=== PATIENT | male | born 1950 | race Caucasian/White ===

== ENCOUNTER 2020-05-21 17:57 | Inpatient (IN) | payer OTHER, MEDICARE ==
[~2020-05-21 17:57] MED LIST: Dexamethasone 20 MG/5 ML VIAL ONE; Glycopyrrolate 0.2 MG/ML 5 ML SYRINGE ONE; Lidocaine 1% PF 5 ML VIAL ONE; Ondansetron PF 4 MG/2 ML Vial ONE; PHENYLEPHRINE-NS 100 MCG/ML 10 ML SYRINGE ONE; PROPOFOL 200 MG/20 ML VIAL ONE; Rocuronium Bromide 10 MG/ML (10ML VIAL) ONE; Succinylcholine 200 MG/10 ml SYRINGE FS ONE
[2020-05-21] MEDS ORDERED: Morphine 4 MG/ML VIAL ONE ×2 (18:09→19:03)
[2020-05-21 18:26] LABS: #Eosinphils 0.2 thou/uL (0.0-0.7); #Neutrophils 12.5 thou/uL (1.40-6.50); %Basophils 0.3 % (0.0-1.0); %Eosinophils 0.9 % (0.0-10.0); %Lymphocytes 22.5 % (21.0-51.0); %Monocytes 5.5 % (0.0-10.0); %Neutrophils 70.8 % (42.0-75.0); Mean Corpuscular HGB CONC 34.1 g/dL (32.0-36.0); Mean Corpuscular Hemoglobin 34.1 pg (27.0-31.0); Mean Corpuscular Volume 99.8 fL (78.0-98.0); Mean Platelet Volume 8.3 fL (7.4-10.4); Platelet Count 208 thou/uL (130-400); Red Blood Cell (RBC) Count 4.41 mill/uL (4.70-6.10); White Blood Cell (WBC) Count 17.7 thou/uL (4.8-10.8)
[2020-05-21 18:34] LABS: INR-International Normal Ratio 1.4; PTT 37.6 sec (22.9-36.1); Prothrombin Time 17.6 sec (12.0-14.7)
[2020-05-21] MEDS ORDERED: Boostrix 0.5 ML (Tdap) VIAL ONE (18:46)
[2020-05-21 18:49] LABS: ALT (SGPT) 58 U/L (8-55); AST (SGOT) 65 U/L (5-34); Albumin 3.6 g/dL (3.4-4.8); Alcohol Less than 10 mg/dL (Less than 10); Alkaline Phosphatase 63 U/L (40-110); Anion Gap 17 mmol/L (10-20); BUN (Urea Nitrogen) 18 mg/dL (8.4-25.7); Bilirubin, Total 0.4 mg/dL (0.2-1.2); Calc. Creatinine Clearance 0 mL/min (70-130); Calcium 7.9 mg/dL (7.8-10.44); Carbon Dioxide 22 mmol/L (23-31); Chloride 105 mmol/L (98-107); Globulin 2.7 g/dL (2.4-3.5); Glucose 166 mg/dL (80-115); Lipase 73 U/L (8-78); Potassium 3.6 mmol/L (3.5-5.1); Protein, Total 6.3 g/dL (5.8-8.1); Sodium 140 mmol/L (136-145)
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
[2020-05-21] MEDS ORDERED: Diltiazem 125 MG/25 ML ONE (19:15)
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
--- NOTE | 2020-05-21 19:43 | RAD ---
EXAM: 2 views of the right femur HISTORY: Right hip pain COMPARISON: CT abdomen/pelvis 05/21/2020 FINDINGS: There is a fracture of the right posterior acetabulum and dislocation of the right hip. No fracture of the inferior pubic ramus is appreciated. Moderate soft tissue swelling is seen. No degenerative changes are seen in the hip. IMPRESSION: Right acetabular fracture with hip dislocation.
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
[2020-05-21] MEDS ORDERED: Fentanyl 100 MCG/2 ML VIAL ONE ×5 (20:10→22:49)
[2020-05-21] MEDS ORDERED: Ketorolac Tromethamine 30 MG/ML VIAL ONE (20:10)
[2020-05-21 20:12] LABS: Magnesium 1.4 mg/dL (1.6-2.6); Phosphorus 2.1 mg/dL (2.3-4.7)
[2020-05-21] MEDS ORDERED: Digoxin 0.5 MG/2 ML AMP ONE (20:32)
[2020-05-21 20:36] LABS: Bilirubin Negative (Negative); Blood, Urine Negative (Negative); Clarity Clear (Clear); Glucose, Urine (Dipstick) Normal (Negative); Ketone, Urine Negative (Negative); Leukocyte Negative Leu/uL (Negative); Nitrite Negative (Negative); Protein, Urine (Dipstick) Negative (Neg-Trace); Specific Gravity, Urine 1.018 (1.002-1.036); Urobilinogen Normal mg/dL (Less than 2); pH, Urine 5.5 (5.0-9.0)
[2020-05-21] MEDS ORDERED: Neomycin-Polymyxin 1 ML AMP ONE (20:38)
[2020-05-21] MEDS ORDERED: Midazolam HCl 2 mg/2 ml Vial ONE (21:03)
[2020-05-21] MEDS ORDERED: hydrALAZINE 20 MG/ML VIAL SLOW IVP PRN (21:20)
[2020-05-21] MEDS ORDERED: Dextrose 5% in Water 1,000 ML IV PRN (21:20)
[2020-05-21] MEDS ORDERED: Dextrose 50% Abboject 50 ML SYRINGE SLOW IVP PRN (21:20)
[2020-05-21] MEDS ORDERED: Morphine 2 MG/ML VIAL SLOW IVP PRN (21:20)
[2020-05-21] MEDS ORDERED: Morphine 4 MG/ML VIAL SLOW IVP PRN (21:20)
[2020-05-21 21:22] LABS: SARS-CoV-2 NAA Rapid Test Not Detected (NotDetected)
[2020-05-21] MEDS ORDERED: traMADol HCl 50 MG TAB PO PRN (21:26)
[2020-05-21] MEDS ORDERED: Cyclobenzaprine 10 MG TAB PO PRN (21:26)
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
[2020-05-21 21:34] LABS: Lactic Acid 4.2 mmol/L (0.5-2.2)
[2020-05-21] MEDS ORDERED: Norepinephrine 4 MG/4 ML VIAL ONE (21:41)
[2020-05-21] MEDS ORDERED: Phenylephrine 10 MG/ML VIAL ONE (21:46)
[2020-05-21 21:56] LABS: CKMB 5.6 ng/mL (0-6.6)
[2020-05-21] MEDS ORDERED: HYDROmorphone 2 MG/ML VIAL SLOW IVP PRN (21:58)
[2020-05-21] MEDS ORDERED: Promethazine HCl 25 MG/ML VIAL SLOW IVP PRN (21:58)
[2020-05-21] MEDS ORDERED: Meperidine HCl/PF 25 MG/ML VIAL SLOW IVP PRN (21:58)
[2020-05-21] MEDS ORDERED: Ondansetron HCl/PF 4 MG/2 ML Vial IVP PRN (21:58)
--- NOTE | 2020-05-21 23:04 | RAD ---
EXAM: 3 views of the right ankle HISTORY: Ankle fracture COMPARISON: 05/21/2020 at 7:03 PM FINDINGS/IMPRESSION: 3 limited intraoperative fluoroscopic views of the right ankle shows the patient is status post reduction of the tibiotalar dislocation. Screws are seen in the talus and medial malleolus as well as a syndesmotic screw. Air in the soft tissues is from recent surgery.
[2020-05-22 00:06] LABS: Lactic Acid 3.9 mmol/L (0.5-2.2)
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
[2020-05-22] MEDS ORDERED: Diltiazem 125 MG in Sodium Chloride 0.9% 100 ML IVPB SCH ×2 (00:30→14:00)
[2020-05-22] MEDS: Sodium Chloride 0.9% 1,000 ML IV SCH ×5 (01:21→21:35)
[2020-05-22] MEDS: traMADol HCl 50 MG TAB PO SCH ×2 (01:22→06:21)
[2020-05-22] MEDS: Acetaminophen 500 MG TAB PO SCH ×5 (01:22→23:36)
[2020-05-22] MEDS ORDERED: Ketorolac Tromethamine 30 MG/ML VIAL IVP SCH ×2 (03:00→12:00)
[2020-05-22] MEDS: CEFAZOLIN 2 GM in Premix Bag 1 BAG IVPB SCH ×2 (03:24→12:01)
[2020-05-22 04:18] LABS: #Lymphocytes 0.7 thou/uL (1.20-3.40); #Monocytes 0.8 thou/uL (0.11-0.59); #Neutrophils 10.9 thou/uL (1.40-6.50); %Basophils 0.1 % (0.0-1.0); %Eosinophils 0.2 % (0.0-10.0); %Lymphocytes 5.3 % (21.0-51.0); %Monocytes 6.2 % (0.0-10.0); %Neutrophils 88.2 % (42.0-75.0); Hemoglobin 12.3 g/dL (14.0-18.0); Mean Corpuscular HGB CONC 34.8 g/dL (32.0-36.0); Mean Corpuscular Hemoglobin 34.5 pg (27.0-31.0); Mean Corpuscular Volume 99.3 fL (78.0-98.0); Mean Platelet Volume 8.6 fL (7.4-10.4); Platelet Count 162 thou/uL (130-400); RBC Distribution Width 12.1 % (11.5-14.5); Red Blood Cell (RBC) Count 3.55 mill/uL (4.70-6.10); White Blood Cell (WBC) Count 12.3 thou/uL (4.8-10.8)
[2020-05-22 04:49] LABS: INR-International Normal Ratio 1.5; PTT 34.4 sec (22.9-36.1); Prothrombin Time 18.4 sec (12.0-14.7)
[2020-05-22 05:04] LABS: Lactic Acid 4.4 mmol/L (0.5-2.2)
[2020-05-22 05:11] LABS: CKMB 15.3 ng/mL (0-6.6)
[2020-05-22 05:14] LABS: Anion Gap 16 mmol/L (10-20); BUN (Urea Nitrogen) 21 mg/dL (8.4-25.7); Calc. Creatinine Clearance 121 mL/min (70-130); Calcium 7.6 mg/dL (7.8-10.44); Carbon Dioxide 21 mmol/L (23-31); Chloride 109 mmol/L (98-107); Glucose 184 mg/dL (80-115); Phosphorus 3.3 mg/dL (2.3-4.7); Potassium 4.5 mmol/L (3.5-5.1); Sodium 141 mmol/L (136-145)
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
[2020-05-22] MEDS ORDERED: Morphine 4 MG/ML VIAL SLOW IVP PRN (07:16)
[2020-05-22] MEDS ORDERED: Levothyroxine 175 MCG TAB PO SCH (07:30)
[2020-05-22] MEDS ORDERED: Lactated Ringer's 1,000 ML IV SCH (07:30)
[2020-05-22] MEDS ORDERED: Sodium Phosphate 15 MMOL in Sodium Chloride 0.9% 250 ML 250 ML IVPB SCH (07:30)
[2020-05-22] MEDS ORDERED: traMADol HCl 50 MG TAB PO SCH (08:00)
[2020-05-22] MEDS: Gabapentin 300 MG CAP PO SCH ×3 (08:29→20:13)
[2020-05-22] MEDS: Senokot S 8.6-50 MG TAB PO SCH ×2 (08:29→20:15)
[2020-05-22] MEDS: Polyethylene Glycol 3350 17 GM Packet PO SCH (08:30)
[2020-05-22] MEDS ORDERED: Famotidine/PF 20 mg/2ml Vial SLOW IVP SCH (09:00)
[2020-05-22] MEDS ORDERED: Senokot S 8.6-50 MG TAB PO SCH (09:00)
[2020-05-22] MEDS ORDERED: HYDROmorphone 10 mg/100 ml CADD IVPB PRN (09:15)
[2020-05-22] MEDS ORDERED: Metoprolol Tartrate 5 MG/5 ML VIAL IVP SCH (13:00)
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
[2020-05-22] MEDS ORDERED: Digoxin 0.5 MG/2 ML AMP SLOW IVP SCH (14:45)
[2020-05-22 14:56] LABS: #Lymphocytes 1.4 thou/uL (1.20-3.40); #Monocytes 1.5 thou/uL (0.11-0.59); #Neutrophils 13.1 thou/uL (1.40-6.50); %Eosinophils 0.1 % (0.0-10.0); %Lymphocytes 8.5 % (21.0-51.0); %Monocytes 9.3 % (0.0-10.0); %Neutrophils 82.1 % (42.0-75.0); Hemoglobin 11.2 g/dL (14.0-18.0); Mean Corpuscular HGB CONC 34.7 g/dL (32.0-36.0); Mean Corpuscular Hemoglobin 35.2 pg (27.0-31.0); Mean Platelet Volume 8.5 fL (7.4-10.4); Platelet Count 169 thou/uL (130-400); RBC Distribution Width 12.1 % (11.5-14.5); Red Blood Cell (RBC) Count 3.18 mill/uL (4.70-6.10)
[2020-05-22 15:06] LABS: Lactic Acid 2.1 mmol/L (0.5-2.2)
[2020-05-22 15:14] LABS: Troponin I 0.055 ng/mL (< 0.028)
[2020-05-22] MEDS: Amiodarone 450 MG in Dextrose 5% in Water 250 ML IVPB SCH (16:49)
[2020-05-22 16:52] LABS: Calcium 7.2 mg/dL (7.8-10.44); Chloride 107 mmol/L (98-107); Potassium 5.8 mmol/L (3.5-5.1); Sodium 139 mmol/L (136-145)
[2020-05-22 16:53] LABS: Glucose 157 mg/dL (80-115)
[2020-05-22 16:54] LABS: Anion Gap 17 mmol/L (10-20); Carbon Dioxide 21 mmol/L (23-31)
[2020-05-22 16:57] LABS: BUN (Urea Nitrogen) 26 mg/dL (8.4-25.7)
[2020-05-22 16:58] LABS: Magnesium 1.9 mg/dL (1.6-2.6)
[2020-05-22 17:05] LABS: Calc. Creatinine Clearance 77 mL/min (70-130); Phosphorus 7.2 mg/dL (2.3-4.7)
[2020-05-22] MEDS ORDERED: Sodium Chloride 0.9% 1,000 ML IV SCH (17:45)
[2020-05-22] MEDS ORDERED: Hydrocortisone Sod Succ/PF 100 mg/2 ml Vial IVP SCH (22:15)
[2020-05-23] MEDS: Amiodarone 450 MG in Dextrose 5% in Water 250 ML IVPB SCH (02:17)
[2020-05-23] MEDS: Sodium Chloride 0.9% 1,000 ML IV SCH ×2 (02:17→08:32)
[2020-05-23] MEDS ORDERED: Hydrocortisone Sod Succ/PF 100 mg/2 ml Vial IVP SCH (06:00)
[2020-05-23] MEDS: Acetaminophen 500 MG TAB PO SCH ×4 (06:16→23:19)
[2020-05-23] MEDS: Levothyroxine 175 MCG TAB PO SCH (06:17)
[2020-05-23] MEDS ORDERED: Fentanyl 100 MCG/2 ML VIAL ONE ×2 (07:06→09:27)
[2020-05-23] MEDS ORDERED: Famotidine/PF 20 mg/2ml Vial ONE (07:57)
[2020-05-23] MEDS ORDERED: Ondansetron ODT 4 MG TAB ONE (08:06)
[2020-05-23] MEDS: Gabapentin 300 MG CAP PO SCH ×3 (08:33→20:40)
[2020-05-23] MEDS ORDERED: PHENYLEPHRINE-NS 100 MCG/ML 10 ML SYRINGE ONE (09:01)
[2020-05-23] MEDS ORDERED: PROPOFOL 200 MG/20 ML VIAL ONE (09:01)
[2020-05-23] MEDS ORDERED: Rocuronium Bromide 10 MG/ML (10ML VIAL) ONE (09:01)
[2020-05-23] MEDS ORDERED: Glycopyrrolate 0.2 MG/ML 5 ML SYRINGE ONE (09:01)
[2020-05-23] MEDS ORDERED: Ondansetron PF 4 MG/2 ML Vial ONE (09:01)
[2020-05-23] MEDS ORDERED: Succinylcholine 200 MG/10 ml SYRINGE FS ONE (09:01)
[2020-05-23] MEDS ORDERED: Lidocaine 1% PF 5 ML VIAL ONE (09:01)
[2020-05-23] MEDS ORDERED: Dexamethasone 20 MG/5 ML VIAL ONE (09:01)
[2020-05-23] MEDS: Senokot S 8.6-50 MG TAB PO SCH ×2 (10:15→20:40)
[2020-05-23] MEDS ORDERED: Sodium Bicarbonate 150 MEQ in Dextrose 5% in Water 1,000 ML IV SCH (11:45)
[2020-05-23] MEDS ORDERED: SUGAMMADEX SODIUM 200 MG/2 ML VIAL ONE (12:08)
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
[2020-05-23] MEDS ORDERED: Promethazine HCl 25 MG/ML VIAL IM PRN (12:26)
[2020-05-23] MEDS ORDERED: Ondansetron HCl/PF 4 MG/2 ML Vial IVP PRN (12:26)
[2020-05-23] MEDS ORDERED: Promethazine HCl 25 MG/ML VIAL SLOW IVP PRN (12:26)
[2020-05-23] MEDS ORDERED: HYDROmorphone 10 mg/100 ml CADD IVPB PRN (14:21)
[2020-05-23] MEDS: Hydrocortisone Sod Succ/PF 100 mg/2 ml Vial IVP SCH ×3 (14:34→23:19)
[2020-05-23 14:40] LABS: #Lymphocytes 0.5 thou/uL (1.20-3.40); #Monocytes 0.7 thou/uL (0.11-0.59); #Neutrophils 8.7 thou/uL (1.40-6.50); %Basophils 0.4 % (0.0-1.0); %Eosinophils 0.1 % (0.0-10.0); %Lymphocytes 4.8 % (21.0-51.0); %Monocytes 6.7 % (0.0-10.0); %Neutrophils 87.9 % (42.0-75.0); Mean Corpuscular HGB CONC 35.5 g/dL (32.0-36.0); Mean Corpuscular Hemoglobin 36.4 pg (27.0-31.0); Mean Platelet Volume 8.9 fL (7.4-10.4); Platelet Count 111 thou/uL (130-400); RBC Distribution Width 12.3 % (11.5-14.5); Red Blood Cell (RBC) Count 2.19 mill/uL (4.70-6.10); White Blood Cell (WBC) Count 9.9 thou/uL (4.8-10.8)
[2020-05-23] MEDS: Polyethylene Glycol 3350 17 GM Packet PO SCH (14:44)
[2020-05-23 14:58] LABS: Anion Gap 13 mmol/L (10-20); BUN (Urea Nitrogen) 33 mg/dL (8.4-25.7); CK (CPK) 3340 U/L (30-200); Calc. Creatinine Clearance 75 mL/min (70-130); Calcium 6.3 mg/dL (7.8-10.44); Carbon Dioxide 20 mmol/L (23-31); Chloride 106 mmol/L (98-107); Glucose 148 mg/dL (80-115); Magnesium 1.6 mg/dL (1.6-2.6); Phosphorus 4.8 mg/dL (2.3-4.7); Potassium 5.4 mmol/L (3.5-5.1); Sodium 134 mmol/L (136-145)
[2020-05-23] MEDS ORDERED: Magnesium 2 GM/50 ML 2 GM in Premix Bag 1 BAG IVPB SCH (15:30)
[2020-05-23] MEDS: CEFAZOLIN 2 GM in Premix Bag 1 BAG IVPB SCH ×2 (16:22→23:18)
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
[2020-05-23] MEDS: Calcium Carbonate 500 MG ChewTAB PO PRN ×2 (18:23→23:19)
[2020-05-23] MEDS ORDERED: Calcium Gluconate 4.6 MEQ in Sodium Chloride 0.9% 100 ML IVPB SCH (20:45)
[2020-05-24 05:43] LABS: #Lymphocytes 0.9 thou/uL (1.20-3.40); #Monocytes 0.9 thou/uL (0.11-0.59); #Neutrophils 7.4 thou/uL (1.40-6.50); %Basophils 0.1 % (0.0-1.0); %Eosinophils 0.1 % (0.0-10.0); %Lymphocytes 9.8 % (21.0-51.0); %Monocytes 9.3 % (0.0-10.0); %Neutrophils 80.6 % (42.0-75.0); Mean Corpuscular HGB CONC 34.4 g/dL (32.0-36.0); Mean Corpuscular Hemoglobin 34.7 pg (27.0-31.0); Mean Platelet Volume 8.8 fL (7.4-10.4); Platelet Count 114 thou/uL (130-400); RBC Distribution Width 12.2 % (11.5-14.5); Red Blood Cell (RBC) Count 2.02 mill/uL (4.70-6.10); White Blood Cell (WBC) Count 9.2 thou/uL (4.8-10.8)
[2020-05-24 06:11] LABS: Anion Gap 14 mmol/L (10-20); BUN (Urea Nitrogen) 35 mg/dL (8.4-25.7); Calc. Creatinine Clearance 89 mL/min (70-130); Calcium 6.5 mg/dL (7.8-10.44); Carbon Dioxide 22 mmol/L (23-31); Chloride 103 mmol/L (98-107); Glucose 135 mg/dL (80-115); Phosphorus 3.7 mg/dL (2.3-4.7); Potassium 4.9 mmol/L (3.5-5.1); Sodium 134 mmol/L (136-145)
[2020-05-24 06:12] LABS: CK (CPK) 6300 U/L (30-200)
[2020-05-24] MEDS: Hydrocortisone Sod Succ/PF 100 mg/2 ml Vial IVP SCH ×4 (06:15→23:53)
[2020-05-24] MEDS: Acetaminophen 500 MG TAB PO SCH ×4 (06:15→23:50)
[2020-05-24] MEDS: Levothyroxine 175 MCG TAB PO SCH (06:15)
--- NOTE | 2020-05-24 07:39 | RAD ---
Intraoperative imaging of the right hip: 05/23/2020 HISTORY: Fracture dislocation status post ORIF FINDINGS: 4 intraoperative images are provided. Images demonstrate extensive postoperative hardware a ssociated with the right acetabulum. The fracture of the acetabulum demonstrates a more anatomic alignment on this exam and the previously noted dislocation of the right hip appears to have been reduced. IMPRESSION: ORIF as above.
[2020-05-24] MEDS ORDERED: Calcium Chloride 13.6 MEQ in Sodium Chloride 0.9% 100 ML IVPB SCH (08:45)
[2020-05-24] MEDS ORDERED: Sodium Phosphate 15 MMOL in Sodium Chloride 0.9% 250 ML 250 ML IVPB SCH (09:00)
[2020-05-24] MEDS: Sodium Bicarbonate 150 MEQ in Dextrose 5% in Water 1,000 ML IV SCH (09:05)
[2020-05-24] MEDS: Senokot S 8.6-50 MG TAB PO SCH ×2 (09:06→20:57)
[2020-05-24] MEDS: Gabapentin 300 MG CAP PO SCH ×3 (09:07→20:57)
[2020-05-24] MEDS: Polyethylene Glycol 3350 17 GM Packet PO SCH (09:07)
[2020-05-24] MEDS: traMADol HCl 50 MG TAB PO SCH ×3 (10:43→20:56)
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
[2020-05-24] MEDS ORDERED: HYDROmorphone 10 mg/100 ml CADD IVPB PRN (11:17)
[2020-05-24] MEDS: Calcium Carbonate 500 MG ChewTAB PO PRN ×2 (15:20→20:59)
[2020-05-25] MEDS: Sodium Bicarbonate 150 MEQ in Dextrose 5% in Water 1,000 ML IV SCH (02:29)
[2020-05-25 05:27] LABS: #Basophils 0.1 thou/uL (0.0-0.2); #Lymphocytes 0.8 thou/uL (1.20-3.40); #Monocytes 0.8 thou/uL (0.11-0.59); #Neutrophils 6.3 thou/uL (1.40-6.50); %Basophils 1.3 % (0.0-1.0); %Eosinophils 0.1 % (0.0-10.0); %Lymphocytes 9.4 % (21.0-51.0); %Monocytes 9.9 % (0.0-10.0); %Neutrophils 79.3 % (42.0-75.0); Mean Corpuscular HGB CONC 34.7 g/dL (32.0-36.0); Mean Corpuscular Hemoglobin 34.4 pg (27.0-31.0); Mean Platelet Volume 8.8 fL (7.4-10.4); Platelet Count 109 thou/uL (130-400); RBC Distribution Width 13.9 % (11.5-14.5); Red Blood Cell (RBC) Count 2.03 mill/uL (4.70-6.10); White Blood Cell (WBC) Count 7.9 thou/uL (4.8-10.8)
[2020-05-25] MEDS: Acetaminophen 500 MG TAB PO SCH ×4 (05:28→23:19)
[2020-05-25] MEDS: Levothyroxine 175 MCG TAB PO SCH (05:28)
[2020-05-25] MEDS: Hydrocortisone Sod Succ/PF 100 mg/2 ml Vial IVP SCH ×4 (05:29→23:20)
[2020-05-25] MEDS: traMADol HCl 50 MG TAB PO SCH ×4 (05:31→21:03)
[2020-05-25 05:43] LABS: Anion Gap 9 mmol/L (10-20); BUN (Urea Nitrogen) 25 mg/dL (8.4-25.7); CK (CPK) 3470 U/L (30-200); Calc. Creatinine Clearance 159 mL/min (70-130); Calcium 7.4 mg/dL (7.8-10.44); Carbon Dioxide 28 mmol/L (23-31); Chloride 100 mmol/L (98-107); Glucose 139 mg/dL (80-115); Magnesium 1.8 mg/dL (1.6-2.6); Potassium 4.4 mmol/L (3.5-5.1); Sodium 133 mmol/L (136-145)
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
[2020-05-25] MEDS: Ascorbic Acid 500 mg Chewable Tablet PO SCH ×2 (09:05→21:06)
[2020-05-25] MEDS: Ferrous Sulfate 325 MG TAB PO SCH ×2 (09:05→21:05)
[2020-05-25] MEDS: Gabapentin 300 MG CAP PO SCH ×3 (09:05→21:05)
[2020-05-25] MEDS: Senokot S 8.6-50 MG TAB PO SCH ×2 (09:06→21:04)
[2020-05-25] MEDS: Polyethylene Glycol 3350 17 GM Packet PO SCH (09:07)
[2020-05-25] MEDS: Calcium Carbonate 500 MG ChewTAB PO PRN (21:04)
[2020-05-26] MEDS: Calcium Carbonate 500 MG ChewTAB PO PRN (04:42)
[2020-05-26] MEDS: traMADol HCl 50 MG TAB PO SCH ×3 (04:42→17:02)
[2020-05-26] MEDS: Hydrocortisone Sod Succ/PF 100 mg/2 ml Vial IVP SCH (06:18)
[2020-05-26] MEDS: Levothyroxine 175 MCG TAB PO SCH (06:18)
[2020-05-26] MEDS: Acetaminophen 500 MG TAB PO SCH ×4 (06:18→23:22)
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
[2020-05-26] MEDS ORDERED: Dicyclomine 10 MG CAP PO SCH (07:30)
--- NOTE | 2020-05-26 07:54 | PRG ---
DATE OF SERVICE: 05/25/2020 SUBJECTIVE: Turner is a 69-year-old male, postop day 3 from open reduction and internal fixation of a right posterior hip dislocation and a left displaced fracture dislocation of the talus requiring osteotomy. He is doing relatively well. He is in better spirits today. His pain is controlled. OBJECTIVE: VITAL SIGNS: Stable, afebrile, heart rate between 90 and 100, temperature 97.5, respiratory rate 14. GENERAL: He is alert, oriented to person, place, time, situation, responsive, appropriate with examiner. EXTREMITIES: Leg lengths are normal. No malrotation or shortening. He has good digital excursion and capillary refill is brisk in both lower extremities. IMPRESSION: 1. This is a 69-year-old male, postop day 3, right acetabular open reduction and internal fixation. 2. Right ankle postop day 5, open reduction and internal fixation for fracture, dislocation of the talus requiring osteotomy. PLAN: Continue current care. DISPOSITION: Per Trauma Team. Job ID: [id number]
[2020-05-26] MEDS: Ferrous Sulfate 325 MG TAB PO SCH ×2 (08:14→22:13)
[2020-05-26] MEDS: Gabapentin 300 MG CAP PO SCH ×3 (08:14→22:13)
[2020-05-26] MEDS: Ascorbic Acid 500 mg Chewable Tablet PO SCH ×2 (08:14→22:13)
[2020-05-26] MEDS: Polyethylene Glycol 3350 17 GM Packet PO SCH (08:14)
[2020-05-26] MEDS ORDERED: Fleet Enema 133 ML BOT PR SCH (08:15)
[2020-05-26] MEDS: Senokot S 8.6-50 MG TAB PO SCH ×2 (08:15→22:13)
[2020-05-26] MEDS ORDERED: Apixaban 5 MG TAB PO SCH (09:00)
[2020-05-26] MEDS ORDERED: PHENYLEPHRINE-NS 100 MCG/ML 10 ML SYRINGE ONE (09:01)
[2020-05-26] MEDS ORDERED: ePHEDrine 50 MG/ML VIAL ONE (09:01)
[2020-05-26] MEDS ORDERED: PROPOFOL 200 MG/20 ML VIAL ONE (09:01)
[2020-05-26] MEDS ORDERED: Succinylcholine 200 MG/10 ml SYRINGE FS ONE (09:01)
[2020-05-26] MEDS ORDERED: Lidocaine 1% PF 5 ML VIAL ONE (09:01)
[2020-05-26] MEDS ORDERED: Rocuronium Bromide 10 MG/ML (10ML VIAL) ONE (09:01)
[2020-05-26 10:13] LABS: Hemoglobin 9.5 g/dL (14.0-18.0); Mean Corpuscular HGB CONC 33.2 g/dL (32.0-36.0); Mean Corpuscular Hemoglobin 32.6 pg (27.0-31.0); Platelet Count 165 thou/uL (130-400); RBC Distribution Width 15.1 % (11.5-14.5); Red Blood Cell (RBC) Count 2.92 mill/uL (4.70-6.10); White Blood Cell (WBC) Count 11.7 thou/uL (4.8-10.8)
[2020-05-26 10:41] LABS: Band 12 % (5-11); Lymphocytes 17 % (21-51); MDiff Complete? YES; Monocytes 10 % (0-10); Neutrophil 59 % (42-75); Nucleated RBC 1 % (0); Platelet Morphology Comment Appears Adequate; Polychromasia SLIGHT = 2-3 cells (100X) (0-2/hpf); Reactive Lymphocytes 2 % (0-10)
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
[2020-05-26] MEDS ORDERED: Iopamidol-370 76% 500 ML 1 ML ONE (11:45)
[2020-05-26] MEDS ORDERED: NEOSTIGMINE SC SCH (14:00)
--- NOTE | 2020-05-26 14:19 | RAD ---
Exam: One view chest 2 views abdomen HISTORY: Evaluate for ileus FINDINGS: 1 view chest: Normal cardiac silhouette. Diminished lung volumes No masses or consolidation or pneumothorax 2 views abdomen: Portable supine and left lateral decubitus views demonstrate pneumoperitoneum. Marke dly distended loops of colon are identified. Air-filled small bowel loops are also noted. IMPRESSION: 1. Pneumoperitoneum. 2. Distended small bowel and loops of colon suggesting ileus line results study discussed with Dr. Nj rodriguez 05/26/2019 at 2:16 PM Code CR
[2020-05-26] MEDS: Piperacillin/Tazobactam 4.5 GM in Sodium Chloride 0.9% 100 ML IVPB SCH ×3 (15:22→23:23)
[2020-05-26 15:26] LABS: INR-International Normal Ratio 1.5; PTT 37.4 sec (22.9-36.1)
--- NOTE | 2020-05-26 15:41 | CT ---
CT OF THE ABDOMEN AND PELVIS WITH IV CONTRAST INDICATION: 69-year-old male with history of abdominal pain with inability to have a bowel movement s danni last Chai. COMPARISON: CT the pelvis without contrast dated May 22, [address] the chest, abdomen and pel vis dated May 21, 2020. FINDINGS: ABDOMEN: Lung bases: There are small bilateral pleural effusions and bibasilar atelectasis Liver: No focal lesion. Gallbladder: Surgically absent Pancreas: Normal. Adrenal glands: Normal. Spleen: There are numerous calcified granuloma within the spleen Kidneys and ureters: There is a 5 cm cyst involving the inferior pole of the right kidney. There is a 1.6 cm cyst involving the posterior aspect of the left mid kidney. Additional subcentimeter cyst seen within the superior pole of the left kidney. Vasculature: There are mild vascular calcifications seen involving the visualized vasculature. Lymph nodes:No lymphadenopathy. Free fluid in abdomen:There is mild scattered free air and free fluid within the abdomen. There is di ffuse enlargement of the small and large bowel suspicious for ileus. There is suspicion for transmural extension of gas at the level of the proximal sigmoid colon on image 81 of series 2. There are numerous scattered colonic diverticula. PELVIS: Small and large bowel: Suspected proximal sigmoid colonic perforation with [id number] free air and free fluid is above. There is suspicion for diffuse ileus. Appendix:Not definitely seen Bladder: Decompressed with a Andrea catheter Rectal and perirectal soft tissues:There is fluid distention of the rectum Reproductive structures: Normal. Free fluid in pelvis: There is a mild free fluid in pelvis. Lymphadenopathy pelvis: No lymphadenopathy is evident. Osseous structures: There is postsurgical change consistent with a posterior wall repair of the right acetabulum. There are bilateral pars defects at L5 with grade 1 anterolisthesis. There is scattered degenerative and osteoarthritic changes. Soft tissues:There is mild anasarca IMPRESSION: 1. Findings are most suspicious for perforated viscus. There is suspicion for transmural extension of gas near the region of the proximal sigmoid colon, possibly related to a perforated diverticulitis. Findings were called to Dr. Currie at 3:30 PM on May 26, 2019. 2. Diffuse small and large bowel ileus. 3. [id number] free fluid or free air within the abdomen and pelvis. 4. Small bilateral pleural effusions and bibasilar atelectasis and mild anasarca. 5. Bilateral renal cysts. 6. Interval operative repair of the right hip posterior wall last however fracture.
[2020-05-26 15:53] LABS: Anisocytosis MODERATE=16-30 cells (100X) (0-5/hpf); Band 17 % (5-11); Hemoglobin 8.9 g/dL (14.0-18.0); Hypochromia SLIGHT = 6-15 cells (100X) (0-5/hpf); Lymphocytes 9 % (21-51); MDiff Complete? YES; Mean Corpuscular HGB CONC 34.1 g/dL (32.0-36.0); Mean Corpuscular Hemoglobin 33.2 pg (27.0-31.0); Mean Corpuscular Volume 97.4 fL (78.0-98.0); Mean Platelet Volume 7.8 fL (7.4-10.4); Monocytes 7 % (0-10); Neutrophil 66 % (42-75); Nucleated RBC 2 % (0); Platelet Count 195 thou/uL (130-400); Platelet Morphology Comment Appears Adequate; Polychromasia MODERATE = 3-4 cells (100X) (0-2/hpf); RBC Distribution Width 14.8 % (11.5-14.5); Reactive Lymphocytes 1 % (0-10); Red Blood Cell (RBC) Count 2.69 mill/uL (4.70-6.10); White Blood Cell (WBC) Count 11.8 thou/uL (4.8-10.8)
[2020-05-26 15:54] LABS: Anion Gap 14 mmol/L (10-20); BUN (Urea Nitrogen) 21 mg/dL (8.4-25.7); Calc. Creatinine Clearance 185 mL/min (70-130); Calcium 8.1 mg/dL (7.8-10.44); Carbon Dioxide 29 mmol/L (23-31); Chloride 98 mmol/L (98-107); Glucose 102 mg/dL (80-115); Magnesium 1.6 mg/dL (1.6-2.6); Phosphorus 3.2 mg/dL (2.3-4.7); Potassium 4.3 mmol/L (3.5-5.1); Sodium 137 mmol/L (136-145)
[2020-05-26] MEDS ORDERED: Fentanyl 100 MCG/2 ML VIAL ONE (16:33)
[2020-05-26] MEDS ORDERED: Sodium Chloride 0.9% 30 ML ONE (18:00)
[2020-05-26] MEDS ORDERED: Propofol 1,000 MG/100 ML VIAL IV ONE (19:28)
[2020-05-26] MEDS ORDERED: Ventilator Sedation Protocol 1 EACH FS ONE (19:34)
[2020-05-26] MEDS ORDERED: Fentanyl CADD 100 ML ONE (19:36)
[2020-05-26] MEDS: Fentanyl CADD 100 ML IV SCH (19:40)
[2020-05-26] MEDS ORDERED: Propofol BOLUS 1,000 MG/100 ML VIAL IV PRN (19:45)
[2020-05-26] MEDS ORDERED: Fentanyl BOLUS 250 ML IVPB PRN (19:45)
[2020-05-26] MEDS ORDERED: Morphine 2 MG/ML VIAL SLOW IVP PRN (19:45)
[2020-05-26] MEDS ORDERED: Propofol 1,000 MG/100 ML VIAL IV PRN (19:45)
[2020-05-26] MEDS ORDERED: DISCONTINUE PREVIOUS NARCOTIC PAIN MEDICATIONS AND BENZODIAZEPINES FS SCH (19:45)
[2020-05-26] MEDS ORDERED: Lorazepam 2 MG/ML VIAL SLOW IVP PRN (19:45)
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
[2020-05-26 19:50] LABS: Actual Bicarbonate (HCO3a) 30.8 mEq/L (22-28); Base Excess (BEa) 4.9 mEq/L (-2.0 to +3.0); CO2 Tension 52.1 mmHg (35.0-45.0); Calcium, Ionized (arterial) 1.02 mmol/L (1.12-1.30); Hemoglobin (Hb) 9.8 g/dL (14.0-18.0); O2 Tension (PaO2), arterial 68.3 mmHg (> 80.0); Potassium - ABG Lab 4.43 mmol/L (3.70-5.30); pH, Arterial 7.39 (7.35-7.45)
[2020-05-26 19:53] LABS: Puncture Site RRA
[2020-05-26 19:54] LABS: ALV-art Gradient 151.775 mmHg (0-20)
--- NOTE | 2020-05-26 20:11 | RAD ---
PORTABLE SUPINE CHEST: 05/26/20 HISTORY: Central line placement. Heart size is enlarged. Pulmonary vessels are engorged with increased perihilar lung markings. Endotr acheal tube is in satisfactory position. NG tube is below the hemidiaphragm. Difficult to assess on t his exam, catheter tip is directed in the region of the left brachiocephalic vein. I cannot definitel y discern the tip of this catheter. I do not see any signs of pneumothorax. IMPRESSION: 1. Cardiomegaly with pulmonary edema type changes. 2. Endotracheal and NG tubes in satisfactory position. Left sided subclavian line. Catheter tip is difficult to assess probably overlying the superior vena cava. No pneumothorax. POS: FRANKIE
[2020-05-26] MEDS ORDERED: Ketorolac Tromethamine 30 MG/ML VIAL IVP SCH (21:30)
[2020-05-26] MEDS ORDERED: Sodium Chloride 0.9% 500 ML IV SCH (21:45)
[2020-05-26] MEDS: Sodium Chloride 0.9% 1,000 ML IV SCH (22:17)
[2020-05-26 22:49] LABS: Hemoglobin 8.2 g/dL (14.0-18.0); Mean Corpuscular HGB CONC 33.4 g/dL (32.0-36.0); Mean Corpuscular Hemoglobin 32.9 pg (27.0-31.0); Mean Corpuscular Volume 98.4 fL (78.0-98.0); Mean Platelet Volume 7.9 fL (7.4-10.4); Platelet Count 174 thou/uL (130-400); RBC Distribution Width 14.9 % (11.5-14.5); Red Blood Cell (RBC) Count 2.48 mill/uL (4.70-6.10); White Blood Cell (WBC) Count 10.1 thou/uL (4.8-10.8)
[2020-05-26 23:01] LABS: Band 7 % (5-11); Lymphocytes 9 % (21-51); MDiff Complete? YES; Monocytes 7 % (0-10); Neutrophil 77 % (42-75)
[2020-05-26 23:07] LABS: Anion Gap 12 mmol/L (10-20); BUN (Urea Nitrogen) 22 mg/dL (8.4-25.7); Calc. Creatinine Clearance 178 mL/min (70-130); Calcium 7.4 mg/dL (7.8-10.44); Carbon Dioxide 30 mmol/L (23-31); Chloride 100 mmol/L (98-107); Glucose 114 mg/dL (80-115); Magnesium 1.5 mg/dL (1.6-2.6); Phosphorus 3.3 mg/dL (2.3-4.7); Potassium 4.7 mmol/L (3.5-5.1); Sodium 137 mmol/L (136-145)
[2020-05-26] MEDS ORDERED: Hydrocortisone Sod Succ/PF 100 mg/2 ml Vial IVP SCH (23:15)
[2020-05-26 23:31] LABS: Actual Bicarbonate (HCO3a) 28.6 mEq/L (22-28); Base Excess (BEa) 4.6 mEq/L (-2.0 to +3.0); CO2 Tension 40.3 mmHg (35.0-45.0); Calcium, Ionized (arterial) 1.02 mmol/L (1.12-1.30); Carboxyhemoglobin (COHb) 0.9 gm% (0.0-3.0); Hemoglobin (Hb) 7.9 g/dL (14.0-18.0); O2 Tension (PaO2), arterial 125.7 mmHg (> 80.0); pH, Arterial 7.47 (7.35-7.45)
[2020-05-26 23:33] LABS: ALV-art Gradient 180.425 mmHg (0-20)
[2020-05-26] MEDS ORDERED: Calcium Chloride 1 GM/10 ML Abboject SYRINGE IVP SCH (23:45)
[2020-05-27] MEDS ORDERED: Magnesium Sulfate 3 GM in Sodium Chloride 0.9% 250 ML 250 ML IVPB SCH (00:30)
[2020-05-27 05:16] LABS: #Lymphocytes 0.7 thou/uL (1.20-3.40); #Monocytes 0.7 thou/uL (0.11-0.59); #Neutrophils 8.1 thou/uL (1.40-6.50); %Eosinophils 0.3 % (0.0-10.0); %Lymphocytes 7.5 % (21.0-51.0); %Monocytes 7.4 % (0.0-10.0); %Neutrophils 84.9 % (42.0-75.0); Hemoglobin 7.5 g/dL (14.0-18.0); Mean Corpuscular HGB CONC 35.1 g/dL (32.0-36.0); Mean Corpuscular Volume 99.8 fL (78.0-98.0); Mean Platelet Volume 7.9 fL (7.4-10.4); Platelet Count 160 thou/uL (130-400); RBC Distribution Width 14.9 % (11.5-14.5); Red Blood Cell (RBC) Count 2.15 mill/uL (4.70-6.10); White Blood Cell (WBC) Count 9.5 thou/uL (4.8-10.8)
[2020-05-27] MEDS: Levothyroxine 175 MCG TAB PO SCH (05:33)
[2020-05-27 06:07] LABS: Anion Gap 12 mmol/L (10-20); BUN (Urea Nitrogen) 26 mg/dL (8.4-25.7); CK (CPK) 1377 U/L (30-200); Calc. Creatinine Clearance 181 mL/min (70-130); Calcium 7.8 mg/dL (7.8-10.44); Carbon Dioxide 29 mmol/L (23-31); Chloride 101 mmol/L (98-107); Glucose 119 mg/dL (80-115); Magnesium 2.2 mg/dL (1.6-2.6); Phosphorus 3.8 mg/dL (2.3-4.7); Potassium 4.6 mmol/L (3.5-5.1); Sodium 137 mmol/L (136-145)
[2020-05-27] MEDS: Acetaminophen 500 MG TAB PO SCH (06:16)
[2020-05-27] MEDS: Sodium Chloride 0.9% 1,000 ML IV SCH ×2 (06:16→15:38)
[2020-05-27] MEDS: Piperacillin/Tazobactam 4.5 GM in Sodium Chloride 0.9% 100 ML IVPB SCH ×3 (06:16→18:14)
[2020-05-27] MEDS: Ondansetron PF 4 MG/2 ML Vial IVP PRN (06:45)
[2020-05-27] MEDS: Gabapentin 300 MG CAP PO SCH (09:55)
[2020-05-27] MEDS: Neostigmine 0.5 MG in Syringe 0 ML SC SCH ×2 (12:15→18:13)
[2020-05-27] MEDS: Senokot S 8.6-50 MG TAB PO SCH ×2 (12:51→21:30)
[2020-05-27] MEDS: Polyethylene Glycol 3350 17 GM Packet PO SCH (12:51)
[2020-05-27] MEDS: Ferrous Sulfate 325 MG TAB PO SCH (12:52)
[2020-05-27] MEDS: Ascorbic Acid 500 mg Chewable Tablet PO SCH (12:52)
[2020-05-27] MEDS: Acetaminophen 650 MG/20.3 ML UDCUP PO SCH ×2 (13:20→18:13)
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
[2020-05-27 22:17] LABS: #Eosinphils 0.1 thou/uL (0.0-0.7); #Lymphocytes 1.1 thou/uL (1.20-3.40); #Monocytes 0.8 thou/uL (0.11-0.59); #Neutrophils 8.1 thou/uL (1.40-6.50); %Basophils 0.2 % (0.0-1.0); %Eosinophils 0.9 % (0.0-10.0); %Lymphocytes 11.2 % (21.0-51.0); %Monocytes 7.8 % (0.0-10.0); %Neutrophils 79.8 % (42.0-75.0); Hemoglobin 7.6 g/dL (14.0-18.0); Mean Corpuscular HGB CONC 33.8 g/dL (32.0-36.0); Mean Corpuscular Hemoglobin 33.7 pg (27.0-31.0); Mean Corpuscular Volume 99.7 fL (78.0-98.0); Mean Platelet Volume 7.7 fL (7.4-10.4); Platelet Count 190 thou/uL (130-400); RBC Distribution Width 14.9 % (11.5-14.5); Red Blood Cell (RBC) Count 2.25 mill/uL (4.70-6.10); White Blood Cell (WBC) Count 10.1 thou/uL (4.8-10.8)
[2020-05-27 22:35] LABS: Anion Gap 11 mmol/L (10-20); BUN (Urea Nitrogen) 26 mg/dL (8.4-25.7); Calc. Creatinine Clearance 197 mL/min (70-130); Carbon Dioxide 29 mmol/L (23-31); Chloride 103 mmol/L (98-107); Glucose 109 mg/dL (80-115); Magnesium 1.8 mg/dL (1.6-2.6); Phosphorus 3.7 mg/dL (2.3-4.7); Potassium 4.1 mmol/L (3.5-5.1); Sodium 139 mmol/L (136-145)
[2020-05-28] MEDS: Sodium Chloride 0.9% 1,000 ML IV SCH ×3 (01:10→15:07)
[2020-05-28] MEDS: Acetaminophen 650 MG/20.3 ML UDCUP PO SCH ×4 (01:13→17:51)
[2020-05-28] MEDS: Piperacillin/Tazobactam 4.5 GM in Sodium Chloride 0.9% 100 ML IVPB SCH ×4 (01:14→17:51)
[2020-05-28] MEDS: Neostigmine 0.5 MG in Syringe 0 ML SC SCH ×4 (01:47→17:53)
[2020-05-28 04:56] LABS: Lactic Acid 0.9 mmol/L (0.5-2.2)
[2020-05-28 05:07] LABS: Anion Gap 13 mmol/L (10-20); BUN (Urea Nitrogen) 25 mg/dL (8.4-25.7); Calc. Creatinine Clearance 200 mL/min (70-130); Calcium 6.9 mg/dL (7.8-10.44); Carbon Dioxide 27 mmol/L (23-31); Chloride 103 mmol/L (98-107); Glucose 105 mg/dL (80-115); Magnesium 1.8 mg/dL (1.6-2.6); Phosphorus 3.4 mg/dL (2.3-4.7); Potassium 3.9 mmol/L (3.5-5.1); Sodium 139 mmol/L (136-145)
[2020-05-28 05:15] LABS: Band 6 % (5-11); Eosinophils 2 % (0-10); Hemoglobin 7.2 g/dL (14.0-18.0); Lymphocytes 8 % (21-51); MDiff Complete? YES; Mean Corpuscular HGB CONC 33.8 g/dL (32.0-36.0); Mean Corpuscular Hemoglobin 34.2 pg (27.0-31.0); Mean Platelet Volume 8.1 fL (7.4-10.4); Metamyelocyte 1 % (0-0); Monocytes 11 % (0-10); Neutrophil 72 % (42-75); Platelet Count 186 thou/uL (130-400); Platelet Morphology Comment Appears Adequate; RBC Distribution Width 14.8 % (11.5-14.5); White Blood Cell (WBC) Count 8.9 thou/uL (4.8-10.8)
[2020-05-28] MEDS: Levothyroxine 175 MCG TAB PO SCH (05:45)
[2020-05-28] MEDS ORDERED: SODIUM CHLORIDE 0.9% IVPB SCH (09:15)
[2020-05-28] MEDS ORDERED: MAGNESIUM SULFATE IVPB SCH (09:15)
[2020-05-28] MEDS ORDERED: POTASSIUM CHLORIDE IVPB SCH (09:15)
[2020-05-28] MEDS: Senokot S 8.6-50 MG TAB PO SCH ×2 (10:21→21:29)
[2020-05-28] MEDS: Saccharomyces boulardii 250 MG CAP PO SCH (10:22)
[2020-05-28] MEDS: Polyethylene Glycol 3350 17 GM Packet PO SCH (10:22)
[2020-05-28] MEDS: Pantoprazole 40 MG GRANULES PACKET PER TUBE SCH (10:26)
[2020-05-28] MEDS ORDERED: Midazolam HCl 5 mg/5 ml Vial ONE (10:30)
[2020-05-28] MEDS ORDERED: Fentanyl 100 MCG/2 ML VIAL ONE (10:30)
[2020-05-28] MEDS: Ondansetron PF 4 MG/2 ML Vial IVP PRN (10:59)
[2020-05-28] MEDS ORDERED: Rocuronium Bromide 10 MG/ML (10ML VIAL) ONE (11:13)
[2020-05-28] MEDS ORDERED: Dexamethasone 20 MG/5 ML VIAL ONE (11:13)
[2020-05-28] MEDS ORDERED: Ondansetron PF 4 MG/2 ML Vial ONE (11:13)
[2020-05-28] MEDS: Metoprolol Tartrate 25 MG TAB PER TUBE SCH ×4 (11:51→20:37)
[2020-05-28] MEDS ORDERED: Rocuronium Bromide 50 MG/5 ML VIAL ONE (12:11)
[2020-05-28] MEDS ORDERED: Albumin 25% 0 ML ONE (12:21)
[2020-05-28] MEDS ORDERED: Fentanyl CADD 100 ML ONE (13:40)
[2020-05-28] MEDS: Fentanyl CADD 100 ML IV SCH (13:48)
--- NOTE | 2020-05-28 14:35 | RAD ---
KUB: 05/28/2020 HISTORY: Feeding tube There is a nasogastric tube which extends into the left upper quadrant, curling in the expected locat ion of the gastric fundus. There is a Dobbhoff tube present, distal tip overlying the expected location of the distal gastric body, with marked redundancy within the region of the stomach. There i s gaseous distention of bowel in the upper abdomen. IMPRESSION: Nasogastric tube and Dobbhoff tube as above.
--- NOTE | 2020-05-28 14:47 | OP ---
DATE OF PROCEDURE: 05/28/2020 PREOPERATIVE DIAGNOSES: 1. Status post exploratory laparotomy for suspected perforated viscus. 2. Pseudo-obstruction of Aron's type. 3. Open abdomen. POSTOPERATIVE DIAGNOSES: 1. Status post exploratory laparotomy for suspected perforated viscus. 2. Pseudo-obstruction of Aron's type. 3. Open abdomen. OPERATIONS PERFORMED: 1. Exploratory laparotomy. 2. Abdominal washout and closure. ANESTHESIA: General endotracheal. ESTIMATED BLOOD LOSS: 50 mL. FLUIDS GIVEN: 600 mL of crystalloids and 1 unit of packed red blood cells as preoperative hemoglobin was 7.4. COUNTS: Sponge and instrument counts were verified as correct x2. COMPLICATIONS: None apparent at the time of operation. INDICATIONS FOR OPERATION: A 69-year-old morbidly obese man is 2 days status post exploratory laparotomy for suspected perforated viscus with peritonitis. He was brought to the operating room for exploratory laparotomy, finding no obvious bowel perforation. The abdomen was left open as the patient had massive distention of small and large bowel secondary to pseudo-obstruction of [place]'s type. He was transferred to the operating room today for re-exploration. Findings today consistent with resolving pseudo-obstruction and no obvious intra-abdominal contamination. DESCRIPTION OF PROCEDURE: Informed consent was obtained from the patient's . The patient was brought to the operating room and placed in supine position. Following general anesthesia, previous Andrea catheter was placed to bedside drain. Nasogastric tube was placed to wall suction. External wound VAC dressing was removed and abdomen was sterilely prepped and draped in the usual fashion. Internal wound VAC dressing was removed. Peritoneal cavity was entered. A Bookwalter retractor was put in place to gain exposure. The abdomen was explored in all 4 quadrants, finding no pathology. Small bowel was run from the ligament of Treitz down to terminal ileum. No pathology noted. Large intestine inspected from the cecum through the ascending, transverse, descending, sigmoid colon, and rectum. The previously noted massive distention of small and large bowel appeared to be resolving. No significant bowel wall edema was noted. Decision was made therefore to close the abdomen. The abdomen was irrigated in all 4 quadrants. Small bowel returned to normal anatomic location. Omentum was drawn over the viscera. Fascia was approximated in the midline using a running stitch of #1 single-stranded PDS. Deep subcutaneous tissues were irrigated with pulse lavage of 3 L sterile saline. Bleeding points were controlled with cautery. Subcutaneous tissues were approximated using interrupted sutures of 2-0 Vicryl. Skin incision was closed using sue. Sterile dressings were applied. The patient tolerated this operation without any apparent complication and was returned to the intensive care unit in critical, but stable condition. Job ID: [id number]
[2020-05-29] MEDS: Acetaminophen 650 MG/20.3 ML UDCUP PO SCH ×5 (00:36→23:50)
[2020-05-29] MEDS: Neostigmine 0.5 MG in Syringe 0 ML SC SCH ×5 (00:38→23:51)
[2020-05-29] MEDS: Piperacillin/Tazobactam 4.5 GM in Sodium Chloride 0.9% 100 ML IVPB SCH ×5 (00:38→23:50)
[2020-05-29] MEDS: Sodium Chloride 0.9% 1,000 ML IV SCH ×3 (00:41→16:46)
[2020-05-29] MEDS: Levothyroxine 175 MCG TAB PO SCH (06:09)
[2020-05-29] MEDS: Saccharomyces boulardii 250 MG CAP PO SCH (08:34)
[2020-05-29] MEDS: Metoprolol Tartrate 25 MG TAB PER TUBE SCH ×3 (08:34→20:03)
[2020-05-29] MEDS: Polyethylene Glycol 3350 17 GM Packet PO SCH (08:35)
[2020-05-29] MEDS: Senokot S 8.6-50 MG TAB PO SCH ×2 (08:35→20:03)
[2020-05-29] MEDS: Pantoprazole 40 MG GRANULES PACKET PER TUBE SCH (08:35)
[2020-05-29] MEDS: Ondansetron PF 4 MG/2 ML Vial IVP PRN (09:02)
[2020-05-29] MEDS: traMADol HCl 50 MG TAB PO SCH ×3 (09:07→20:02)
[2020-05-29] MEDS: Metoclopramide HCl 10 MG/2 ML VIAL IVP SCH ×3 (11:03→22:18)
[2020-05-29 13:22] LABS: #Eosinphils 0.1 thou/uL (0.0-0.7); #Lymphocytes 1.4 thou/uL (1.20-3.40); #Neutrophils 9.8 thou/uL (1.40-6.50); %Basophils 0.1 % (0.0-1.0); %Eosinophils 0.7 % (0.0-10.0); %Lymphocytes 11.6 % (21.0-51.0); %Monocytes 7.9 % (0.0-10.0); %Neutrophils 79.7 % (42.0-75.0); Hemoglobin 8.4 g/dL (14.0-18.0); Mean Corpuscular HGB CONC 32.2 g/dL (32.0-36.0); Mean Corpuscular Hemoglobin 32.4 pg (27.0-31.0); Mean Platelet Volume 7.4 fL (7.4-10.4); Platelet Count 275 thou/uL (130-400); RBC Distribution Width 15.3 % (11.5-14.5); White Blood Cell (WBC) Count 12.2 thou/uL (4.8-10.8)
[2020-05-29 13:44] LABS: Anion Gap 11 mmol/L (10-20); BUN (Urea Nitrogen) 26 mg/dL (8.4-25.7); Calc. Creatinine Clearance 198 mL/min (70-130); Calcium 6.3 mg/dL (7.8-10.44); Carbon Dioxide 28 mmol/L (23-31); Chloride 108 mmol/L (98-107); Glucose 107 mg/dL (80-115); Magnesium 1.8 mg/dL (1.6-2.6); Phosphorus 2.7 mg/dL (2.3-4.7); Potassium 3.9 mmol/L (3.5-5.1); Sodium 143 mmol/L (136-145)
[2020-05-29] MEDS ORDERED: Furosemide 20 MG/2 ML VIAL SLOW IVP SCH (19:00)
[2020-05-30] MEDS: Sodium Chloride 0.9% 1,000 ML IV SCH ×4 (00:56→23:14)
[2020-05-30] MEDS: traMADol HCl 50 MG TAB PO SCH ×4 (03:32→21:12)
[2020-05-30] MEDS: Metoclopramide HCl 10 MG/2 ML VIAL IVP SCH (03:33)
[2020-05-30 05:12] LABS: #Basophils 0.1 thou/uL (0.0-0.2); #Eosinphils 0.3 thou/uL (0.0-0.7); #Lymphocytes 1.4 thou/uL (1.20-3.40); #Monocytes 0.9 thou/uL (0.11-0.59); #Neutrophils 8.5 thou/uL (1.40-6.50); %Basophils 0.5 % (0.0-1.0); %Eosinophils 2.7 % (0.0-10.0); %Lymphocytes 12.2 % (21.0-51.0); %Monocytes 7.8 % (0.0-10.0); %Neutrophils 76.8 % (42.0-75.0); Hemoglobin 8.2 g/dL (14.0-18.0); Mean Corpuscular HGB CONC 33.7 g/dL (32.0-36.0); Mean Corpuscular Hemoglobin 34.5 pg (27.0-31.0); Mean Platelet Volume 7.4 fL (7.4-10.4); Platelet Count 261 thou/uL (130-400); RBC Distribution Width 15.1 % (11.5-14.5); Red Blood Cell (RBC) Count 2.37 mill/uL (4.70-6.10); White Blood Cell (WBC) Count 11.1 thou/uL (4.8-10.8)
[2020-05-30 05:32] LABS: Anion Gap 9 mmol/L (10-20); BUN (Urea Nitrogen) 24 mg/dL (8.4-25.7); Calc. Creatinine Clearance 206 mL/min (70-130); Carbon Dioxide 29 mmol/L (23-31); Chloride 107 mmol/L (98-107); Glucose 89 mg/dL (80-115); Magnesium 1.7 mg/dL (1.6-2.6); Phosphorus 2.5 mg/dL (2.3-4.7); Potassium 3.5 mmol/L (3.5-5.1); Sodium 141 mmol/L (136-145)
[2020-05-30] MEDS: Acetaminophen 650 MG/20.3 ML UDCUP PO SCH ×4 (06:11→23:11)
[2020-05-30] MEDS: Levothyroxine 175 MCG TAB PO SCH (06:15)
[2020-05-30] MEDS: Piperacillin/Tazobactam 4.5 GM in Sodium Chloride 0.9% 100 ML IVPB SCH ×4 (06:20→23:11)
[2020-05-30] MEDS: Neostigmine 0.5 MG in Syringe 0 ML SC SCH (07:09)
[2020-05-30] MEDS: Saccharomyces boulardii 250 MG CAP PO SCH (08:50)
[2020-05-30] MEDS: Senokot S 8.6-50 MG TAB PO SCH ×2 (08:50→21:27)
[2020-05-30] MEDS: Polyethylene Glycol 3350 17 GM Packet PO SCH (08:50)
[2020-05-30] MEDS: Pantoprazole 40 MG GRANULES PACKET PER TUBE SCH (08:51)
[2020-05-30] MEDS: Metoprolol Tartrate 25 MG TAB PER TUBE SCH ×3 (08:52→21:12)
[2020-05-30] MEDS ORDERED: Furosemide 20 MG/2 ML VIAL SLOW IVP SCH (09:00)
[2020-05-30] MEDS ORDERED: Magnesium Sulfate 3 GM in Sodium Chloride 0.9% 250 ML 250 ML IVPB SCH (09:00)
[2020-05-30] MEDS ORDERED: Calcium Chloride 13.6 MEQ in Sodium Chloride 0.9% 100 ML IVPB SCH (09:15)
[2020-05-30] MEDS ORDERED: Morphine 2 MG/ML VIAL SLOW IVP SCH (09:30)
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
[2020-05-30] MEDS: Ondansetron PF 4 MG/2 ML Vial IVP PRN ×2 (13:10→23:16)
[2020-05-30] MEDS: Scopolamine 1.5 mg/72 hour Patch TOP SCH (18:11)
[2020-05-30] MEDS ORDERED: Chloraseptic Spray 180 ml Bottle PO PRN (18:46)
[2020-05-31] MEDS: traMADol HCl 50 MG TAB PO SCH ×4 (03:09→20:36)
[2020-05-31] MEDS: Promethazine HCl 25 MG/ML VIAL IM PRN ×2 (03:09→08:34)
[2020-05-31] MEDS: Acetaminophen 650 MG/20.3 ML UDCUP PO SCH ×3 (06:11→18:24)
[2020-05-31] MEDS: Levothyroxine 175 MCG TAB PO SCH (06:11)
[2020-05-31] MEDS: Piperacillin/Tazobactam 4.5 GM in Sodium Chloride 0.9% 100 ML IVPB SCH ×4 (06:11→23:36)
[2020-05-31 06:30] LABS: #Basophils 0.1 thou/uL (0.0-0.2); #Eosinphils 0.2 thou/uL (0.0-0.7); #Lymphocytes 1.3 thou/uL (1.20-3.40); #Monocytes 0.6 thou/uL (0.11-0.59); %Basophils 0.5 % (0.0-1.0); %Eosinophils 1.9 % (0.0-10.0); %Lymphocytes 11.3 % (21.0-51.0); %Monocytes 5.7 % (0.0-10.0); %Neutrophils 80.6 % (42.0-75.0); Hemoglobin 8.5 g/dL (14.0-18.0); Mean Corpuscular HGB CONC 33.6 g/dL (32.0-36.0); Mean Corpuscular Hemoglobin 34.3 pg (27.0-31.0); Mean Platelet Volume 7.1 fL (7.4-10.4); Platelet Count 287 thou/uL (130-400); Red Blood Cell (RBC) Count 2.48 mill/uL (4.70-6.10); White Blood Cell (WBC) Count 11.2 thou/uL (4.8-10.8)
[2020-05-31 06:46] LABS: Anion Gap 12 mmol/L (10-20); BUN (Urea Nitrogen) 18 mg/dL (8.4-25.7); Calc. Creatinine Clearance 221 mL/min (70-130); Carbon Dioxide 26 mmol/L (23-31); Chloride 109 mmol/L (98-107); Glucose 81 mg/dL (80-115); Magnesium 1.7 mg/dL (1.6-2.6); Phosphorus 2.5 mg/dL (2.3-4.7); Potassium 3.3 mmol/L (3.5-5.1); Sodium 144 mmol/L (136-145)
[2020-05-31 06:49] LABS: Calcium 5.9 mg/dL (7.8-10.44)
[2020-05-31] MEDS: Senokot S 8.6-50 MG TAB PO SCH ×2 (07:53→20:35)
[2020-05-31] MEDS: Polyethylene Glycol 3350 17 GM Packet PO SCH (07:53)
[2020-05-31] MEDS: Pantoprazole 40 MG GRANULES PACKET PO SCH (08:32)
[2020-05-31] MEDS: Metoprolol Tartrate 25 MG TAB PO SCH ×3 (08:33→20:36)
[2020-05-31] MEDS: Saccharomyces boulardii 250 MG CAP PO SCH (08:33)
[2020-05-31] MEDS ORDERED: Enoxaparin Sodium 40 MG/0.4 ML SYRINGE SC SCH (09:00)
[2020-05-31] MEDS ORDERED: Potassium Phosphate 30 MMOL, Magnesium Sulfate 3 GM in Sodium Chloride 0.9% 250 ML 250 ML IVPB SCH (09:30)
[2020-05-31] MEDS: Tamsulosin HCl 0.4 MG CAP PO SCH (10:36)
[2020-05-31] MEDS: Apixaban 5 MG TAB PO SCH ×2 (10:37→20:36)
[2020-05-31] MEDS ORDERED: Furosemide 20 MG/2 ML VIAL SLOW IVP SCH (10:45)
[2020-05-31] MEDS: Sodium Chloride 0.9% 1,000 ML IV SCH (18:32)
[2020-06-01] MEDS: Acetaminophen 650 MG/20.3 ML UDCUP PO SCH ×5 (00:21→23:04)
[2020-06-01] MEDS: traMADol HCl 50 MG TAB PO SCH ×4 (02:34→21:42)
[2020-06-01] MEDS: Levothyroxine 175 MCG TAB PO SCH (06:28)
[2020-06-01] MEDS: Piperacillin/Tazobactam 4.5 GM in Sodium Chloride 0.9% 100 ML IVPB SCH (06:29)
[2020-06-01 06:51] LABS: #Eosinphils 0.2 thou/uL (0.0-0.7); #Lymphocytes 1.2 thou/uL (1.20-3.40); #Monocytes 0.6 thou/uL (0.11-0.59); #Neutrophils 10.5 thou/uL (1.40-6.50); %Basophils 0.1 % (0.0-1.0); %Lymphocytes 9.6 % (21.0-51.0); %Monocytes 4.6 % (0.0-10.0); %Neutrophils 83.7 % (42.0-75.0); Hemoglobin 8.7 g/dL (14.0-18.0); Mean Corpuscular HGB CONC 32.5 g/dL (32.0-36.0); Mean Corpuscular Hemoglobin 32.8 pg (27.0-31.0); Mean Platelet Volume 7.1 fL (7.4-10.4); Platelet Count 336 thou/uL (130-400); RBC Distribution Width 15.2 % (11.5-14.5); Red Blood Cell (RBC) Count 2.64 mill/uL (4.70-6.10); White Blood Cell (WBC) Count 12.6 thou/uL (4.8-10.8)
[2020-06-01 07:09] LABS: Anion Gap 12 mmol/L (10-20); BUN (Urea Nitrogen) 16 mg/dL (8.4-25.7); Calc. Creatinine Clearance 219 mL/min (70-130); Calcium 6.3 mg/dL (7.8-10.44); Carbon Dioxide 27 mmol/L (23-31); Chloride 106 mmol/L (98-107); Glucose 94 mg/dL (80-115); Magnesium 1.7 mg/dL (1.6-2.6); Phosphorus 2.6 mg/dL (2.3-4.7); Potassium 3.5 mmol/L (3.5-5.1); Sodium 141 mmol/L (136-145)
[2020-06-01 07:15] LABS: ALT (SGPT) 51 U/L (8-55); AST (SGOT) 64 U/L (5-34); Albumin 2.4 g/dL (3.4-4.8); Alkaline Phosphatase 122 U/L (40-110); Bilirubin, Direct 0.5 mg/dL (0.1-0.3); Bilirubin, Total 0.9 mg/dL (0.2-1.2); Protein, Total 4.9 g/dL (5.8-8.1)
[2020-06-01] MEDS: Ondansetron PF 4 MG/2 ML Vial IVP PRN ×2 (07:52→13:09)
--- NOTE | 2020-06-01 07:59 | RAD ---
Exam: Chest one view HISTORY:Chest pain Comparison: 05/26/2020 FINDINGS: Lines and tubes: Interval endotracheal tube and nasogastric tube. Stable left-sided vascular catheter . Cardiac silhouette: Normal Aorta: Unremarkable Pulmonary vessels: Normal Costophrenic angles: Clear LUNGS: Persistently diminished lung volumes. Scattered interstitial and alveolar opacities, with slig ht improvement in the left lung base. Pneumothorax: None Osseous abnormalities: None IMPRESSION: 1. Interval removal of endotracheal and nasogastric tube 2. Improved aeration. Residual interstitial and alveolar opacities do remain
[2020-06-01] MEDS ORDERED: Potassium Phosphate 30 MMOL in Sodium Chloride 0.9% 500 ML IVPB SCH (08:00)
[2020-06-01] MEDS ORDERED: Magnesium Sulfate 2 GM in Sodium Chloride 0.9% 100 ML IV SCH (08:00)
[2020-06-01] MEDS ORDERED: Potassium Phosphate 30 MMOL, Magnesium Sulfate 2 GM in Sodium Chloride 0.9% 250 ML 250 ML IVPB SCH (08:00)
[2020-06-01] MEDS ORDERED: Magnesium 2 GM/50 ML 2 GM in Premix Bag 1 BAG IVPB SCH (08:00)
[2020-06-01] MEDS ORDERED: Calcium Chloride 13.6 MEQ in Sodium Chloride 0.9% 100 ML IVPB SCH (09:00)
[2020-06-01] MEDS ORDERED: Furosemide 20 MG/2 ML VIAL SLOW IVP SCH ×3 (09:00→11:00)
[2020-06-01] MEDS ORDERED: Digoxin 0.5 MG/2 ML AMP SLOW IVP SCH (09:00)
[2020-06-01] MEDS: Promethazine HCl 25 MG/ML VIAL IM PRN (09:53)
[2020-06-01] MEDS ORDERED: Ibuprofen 200 MG TAB PO SCH (10:45)
[2020-06-01] MEDS ORDERED: Metoclopramide HCl 10 MG TAB PO SCH (11:30)
[2020-06-01] MEDS ORDERED: MAGNESIUM SULFATE IVPB SCH (12:00)
[2020-06-01] MEDS ORDERED: POTASSIUM CHLORIDE IVPB SCH (12:00)
[2020-06-01] MEDS ORDERED: SODIUM CHLORIDE 0.9% IVPB SCH (12:00)
[2020-06-01] MEDS: Tamsulosin HCl 0.4 MG CAP PO SCH (12:38)
[2020-06-01] MEDS: Senokot S 8.6-50 MG TAB PO SCH ×2 (12:38→21:42)
[2020-06-01] MEDS: Polyethylene Glycol 3350 17 GM Packet PO SCH (12:38)
[2020-06-01] MEDS: Metoprolol Tartrate 25 MG TAB PO SCH ×3 (12:39→21:42)
[2020-06-01] MEDS: Apixaban 5 MG TAB PO SCH ×2 (12:39→21:41)
--- NOTE | 2020-06-01 13:01 | RAD ---
SUPINE ABDOMEN: INDICATION: NG tube placement. COMPARISON: 05/28/2020. FINDINGS: NG tube appears to pass through the EG junction and has tip overlying the upper mid abdomen. There are gas-filled dilated loops of small bowel. Gas-filled distended loops of colon. Postoperati ve changes with skin sue noted in the midline. POS: AGW
[2020-06-01] MEDS: Metoclopramide HCl 10 MG/2 ML VIAL IVP SCH ×2 (13:11→22:44)
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
[2020-06-01] MEDS: Pantoprazole 40 MG GRANULES PACKET PO SCH (14:24)
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
[2020-06-01] MEDS ORDERED: Morphine 2 MG/ML VIAL SLOW IVP PRN (21:22)
[2020-06-01] MEDS ORDERED: Morphine 4 MG/ML VIAL SLOW IVP PRN (21:22)
[2020-06-01] MEDS: Ibuprofen 200 MG TAB PO SCH (21:42)
[2020-06-01] MEDS: Metoprolol Tartrate 5 MG/5 ML VIAL IVP SCH (22:44)
--- NOTE | 2020-06-02 00:46 | PDOC.BPN ---
- Brief Progress Note Encounter Date: 06/01/20 Encounter Time: 23:10 Patient was seen during evening rounds on the surgical floor. Nurse reports not tolerating orals, NGT inplace. He did have a bowel movement this evening and reported feeling better. Vital signs are stable and patient is afebrile. Plan for bowel rest overnight and change to IV pain meds and BP meds.
[2020-06-02] MEDS: traMADol HCl 50 MG TAB PO SCH ×4 (04:38→22:13)
[2020-06-02] MEDS: Acetaminophen 650 MG/20.3 ML UDCUP PO SCH ×3 (04:38→17:49)
[2020-06-02] MEDS: Metoprolol Tartrate 5 MG/5 ML VIAL IVP SCH ×2 (04:41→09:18)
[2020-06-02] MEDS: Levothyroxine 175 MCG TAB PO SCH (04:42)
[2020-06-02] MEDS: Metoclopramide HCl 10 MG/2 ML VIAL IVP SCH ×3 (05:05→21:56)
[2020-06-02 05:21] LABS: #Eosinphils 0.1 thou/uL (0.0-0.7); #Lymphocytes 1.1 thou/uL (1.20-3.40); #Monocytes 0.7 thou/uL (0.11-0.59); #Neutrophils 11.9 thou/uL (1.40-6.50); %Basophils 0.1 % (0.0-1.0); %Eosinophils 0.6 % (0.0-10.0); %Lymphocytes 7.8 % (21.0-51.0); %Neutrophils 86.6 % (42.0-75.0); Hemoglobin 8.5 g/dL (14.0-18.0); Mean Corpuscular HGB CONC 32.3 g/dL (32.0-36.0); Mean Corpuscular Hemoglobin 32.5 pg (27.0-31.0); Mean Platelet Volume 6.9 fL (7.4-10.4); Platelet Count 361 thou/uL (130-400); RBC Distribution Width 15.4 % (11.5-14.5); Red Blood Cell (RBC) Count 2.62 mill/uL (4.70-6.10); White Blood Cell (WBC) Count 13.7 thou/uL (4.8-10.8)
[2020-06-02 05:40] LABS: Anion Gap 10 mmol/L (10-20); BUN (Urea Nitrogen) 18 mg/dL (8.4-25.7); Calc. Creatinine Clearance 213 mL/min (70-130); Calcium 6.4 mg/dL (7.8-10.44); Carbon Dioxide 31 mmol/L (23-31); Chloride 106 mmol/L (98-107); Glucose 93 mg/dL (80-115); Magnesium 1.9 mg/dL (1.6-2.6); Potassium 3.4 mmol/L (3.5-5.1); Sodium 144 mmol/L (136-145)
[2020-06-02] MEDS: Senokot S 8.6-50 MG TAB PO SCH ×2 (08:57→22:13)
[2020-06-02] MEDS: Ibuprofen 200 MG TAB PO SCH ×2 (08:57→22:12)
[2020-06-02] MEDS: Tamsulosin HCl 0.4 MG CAP PO SCH (08:57)
[2020-06-02] MEDS: Polyethylene Glycol 3350 17 GM Packet PO SCH (08:57)
[2020-06-02] MEDS: Apixaban 5 MG TAB PO SCH ×2 (08:57→20:12)
[2020-06-02] MEDS ORDERED: Dextrose 5% w/ 20 mEq KCl 1,000 ML IV SCH (09:00)
[2020-06-02] MEDS ORDERED: Pantoprazole 40 MG VIAL IVP SCH (09:00)
[2020-06-02] MEDS ORDERED: Magnesium 2 GM/50 ML 2 GM in Premix Bag 1 BAG IVPB SCH (10:00)
[2020-06-02] MEDS ORDERED: Potassium Phosphate 30 MMOL in Sodium Chloride 0.9% 250 ML 250 ML IVPB SCH (10:00)
[2020-06-02] MEDS: Metoprolol Tartrate 25 MG TAB PO SCH ×3 (11:10→22:13)
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
[2020-06-02] MEDS: Scopolamine 1.5 mg/72 hour Patch TOP SCH (17:50)
[2020-06-02] MEDS: Pantoprazole 40 MG VIAL IVP SCH (20:13)
[2020-06-03] MEDS: Ondansetron PF 4 MG/2 ML Vial IVP PRN ×3 (00:37→14:37)
[2020-06-03] MEDS: Acetaminophen 650 MG/20.3 ML UDCUP PO SCH ×4 (00:46→16:37)
[2020-06-03] MEDS: traMADol HCl 50 MG TAB PO SCH ×4 (04:36→22:09)
[2020-06-03] MEDS: Metoclopramide HCl 10 MG/2 ML VIAL IVP SCH ×3 (04:51→21:27)
[2020-06-03] MEDS: Levothyroxine 175 MCG TAB PO SCH (05:02)
[2020-06-03 05:52] LABS: #Eosinphils 0.1 thou/uL (0.0-0.7); #Lymphocytes 0.7 thou/uL (1.20-3.40); #Monocytes 0.6 thou/uL (0.11-0.59); #Neutrophils 12.1 thou/uL (1.40-6.50); %Basophils 0.1 % (0.0-1.0); %Eosinophils 0.6 % (0.0-10.0); %Lymphocytes 4.9 % (21.0-51.0); %Monocytes 4.3 % (0.0-10.0); %Neutrophils 90.2 % (42.0-75.0); Mean Corpuscular HGB CONC 33.1 g/dL (32.0-36.0); Mean Corpuscular Hemoglobin 33.6 pg (27.0-31.0); Mean Platelet Volume 6.9 fL (7.4-10.4); Platelet Count 403 thou/uL (130-400); Red Blood Cell (RBC) Count 2.66 mill/uL (4.70-6.10); White Blood Cell (WBC) Count 13.4 thou/uL (4.8-10.8)
[2020-06-03 06:11] LABS: Anion Gap 12 mmol/L (10-20); BUN (Urea Nitrogen) 15 mg/dL (8.4-25.7); Calc. Creatinine Clearance 213 mL/min (70-130); Calcium 6.8 mg/dL (7.8-10.44); Carbon Dioxide 30 mmol/L (23-31); Chloride 104 mmol/L (98-107); Glucose 151 mg/dL (80-115); Magnesium 1.8 mg/dL (1.6-2.6); Phosphorus 2.7 mg/dL (2.3-4.7); Potassium 3.3 mmol/L (3.5-5.1); Sodium 143 mmol/L (136-145)
[2020-06-03] MEDS ORDERED: Magnesium 2 GM/50 ML 2 GM in Premix Bag 1 BAG IVPB SCH (08:00)
[2020-06-03] MEDS ORDERED: Potassium Phosphate 30 MMOL in Sodium Chloride 0.9% 500 ML IVPB SCH (08:00)
[2020-06-03] MEDS: Metoprolol Tartrate 25 MG TAB PO SCH ×3 (08:55→20:21)
[2020-06-03] MEDS: Apixaban 5 MG TAB PO SCH ×2 (08:55→20:18)
[2020-06-03] MEDS: Tamsulosin HCl 0.4 MG CAP PO SCH (08:56)
[2020-06-03] MEDS: Ibuprofen 200 MG TAB PO SCH ×2 (09:04→22:09)
[2020-06-03] MEDS: Polyethylene Glycol 3350 17 GM Packet PO SCH (09:04)
[2020-06-03] MEDS: Pantoprazole 40 MG VIAL IVP SCH ×2 (09:04→20:17)
[2020-06-03] MEDS: Senokot S 8.6-50 MG TAB PO SCH ×2 (09:05→22:09)
[2020-06-03] MEDS ORDERED: Potassium Phosphate 30 MMOL, Magnesium Sulfate 2 GM in Sodium Chloride 0.9% 250 ML 250 ML IVPB SCH (09:15)
[2020-06-03] MEDS ORDERED: Potassium Phosphate 30 MMOL in Sodium Chloride 0.9% 250 ML 250 ML IVPB SCH (10:15)
[2020-06-03] MEDS ORDERED: Erythromycin 250 MG in Sodium Chloride 0.9% 250 ML 250 ML IVPB SCH (12:00)
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
[2020-06-03] MEDS: Erythromycin 250 MG in Sodium Chloride 0.9% 250 ML 250 ML IVPB SCH (21:28)
[2020-06-04] MEDS: Acetaminophen 650 MG/20.3 ML UDCUP PO SCH ×5 (01:07→23:53)
[2020-06-04] MEDS: Erythromycin 250 MG in Sodium Chloride 0.9% 250 ML 250 ML IVPB SCH ×5 (03:55→21:30)
[2020-06-04] MEDS: traMADol HCl 50 MG TAB PO SCH ×4 (04:01→21:24)
[2020-06-04] MEDS: Metoclopramide HCl 10 MG/2 ML VIAL IVP SCH ×3 (05:30→21:31)
[2020-06-04] MEDS: Levothyroxine 175 MCG TAB PO SCH (05:45)
[2020-06-04 05:59] LABS: #Eosinphils 0.1 thou/uL (0.0-0.7); #Lymphocytes 0.6 thou/uL (1.20-3.40); #Monocytes 0.4 thou/uL (0.11-0.59); #Neutrophils 7.1 thou/uL (1.40-6.50); %Basophils 0.1 % (0.0-1.0); %Eosinophils 0.8 % (0.0-10.0); %Lymphocytes 7.4 % (21.0-51.0); %Neutrophils 86.7 % (42.0-75.0); Hemoglobin 10.1 g/dL (14.0-18.0); Mean Corpuscular HGB CONC 32.6 g/dL (32.0-36.0); Mean Corpuscular Hemoglobin 34.1 pg (27.0-31.0); Platelet Count 282 thou/uL (130-400); RBC Distribution Width 16.5 % (11.5-14.5); Red Blood Cell (RBC) Count 2.96 mill/uL (4.70-6.10); White Blood Cell (WBC) Count 8.2 thou/uL (4.8-10.8)
[2020-06-04 06:21] LABS: Anion Gap 10 mmol/L (10-20); BUN (Urea Nitrogen) 15 mg/dL (8.4-25.7); Calc. Creatinine Clearance 213 mL/min (70-130); Calcium 6.3 mg/dL (7.8-10.44); Carbon Dioxide 30 mmol/L (23-31); Chloride 106 mmol/L (98-107); Glucose 114 mg/dL (80-115); Magnesium 1.8 mg/dL (1.6-2.6); Phosphorus 3.4 mg/dL (2.3-4.7); Sodium 143 mmol/L (136-145)
[2020-06-04] MEDS ORDERED: Potassium Chloride 20 MEQ TAB PO SCH (08:15)
[2020-06-04] MEDS: Senokot S 8.6-50 MG TAB PO SCH ×2 (09:32→19:53)
[2020-06-04] MEDS: Metoprolol Tartrate 25 MG TAB PO SCH ×3 (09:33→21:25)
[2020-06-04] MEDS: Tamsulosin HCl 0.4 MG CAP PO SCH (09:33)
[2020-06-04] MEDS: Ibuprofen 200 MG TAB PO SCH ×2 (09:33→21:24)
[2020-06-04] MEDS: Apixaban 5 MG TAB PO SCH ×2 (09:34→21:24)
[2020-06-04] MEDS: Polyethylene Glycol 3350 17 GM Packet PO SCH (09:34)
[2020-06-04] MEDS: Pantoprazole 40 MG VIAL IVP SCH ×2 (09:34→21:28)
[2020-06-04 09:37] LABS: Bilirubin Moderate (Negative); Blood, Urine Large (Negative); Glucose, Urine (Dipstick) Negative (Negative); Ketone, Urine Negative (Negative); Leukocyte Negative (Negative); Nitrite Positive (Negative); Protein, Urine (Dipstick) 100 mg/dL (Neg-Trace); Urobilinogen 0.2 mg/dL (Less than 2); pH, Urine 5.5 (5.0-9.0)
[2020-06-04 09:48] LABS: Clarity Extra Turbid (Clear)
[2020-06-04] MEDS ORDERED: Magnesium Sulfate 3 GM in Sodium Chloride 0.9% 250 ML 250 ML IVPB SCH (10:00)
[2020-06-04 10:10] LABS: Yeast-Budding 2+ HPF (None Seen)
[2020-06-04 10:11] LABS: Bacteria/HPF Rare-Few HPF (None Seen); Yeast-Hyphae 1+ HPF (None Seen)
[2020-06-04] MEDS ORDERED: Potassium Chloride 20 MEQ/100 ML PREMIX BAG IVPB SCH ×3 (11:00→12:00)
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
[2020-06-04] MEDS ORDERED: Calcium Chloride 13.6 MEQ in Sodium Chloride 0.9% 100 ML IVPB SCH (17:00)
[2020-06-04] MEDS ORDERED: Fluconazole 100 MG TAB PO SCH (17:30)
[2020-06-05] MEDS: traMADol HCl 50 MG TAB PO SCH ×4 (03:02→20:26)
[2020-06-05] MEDS: Erythromycin 250 MG in Sodium Chloride 0.9% 250 ML 250 ML IVPB SCH ×2 (03:03→08:55)
[2020-06-05 05:06] LABS: #Eosinphils 0.2 thou/uL (0.0-0.7); #Lymphocytes 0.9 thou/uL (1.20-3.40); #Monocytes 0.5 thou/uL (0.11-0.59); #Neutrophils 6.8 thou/uL (1.40-6.50); %Basophils 0.1 % (0.0-1.0); %Eosinophils 2.7 % (0.0-10.0); %Lymphocytes 10.1 % (21.0-51.0); %Monocytes 6.5 % (0.0-10.0); %Neutrophils 80.7 % (42.0-75.0); Hemoglobin 8.4 g/dL (14.0-18.0); Mean Corpuscular HGB CONC 32.4 g/dL (32.0-36.0); Mean Corpuscular Hemoglobin 33.7 pg (27.0-31.0); Platelet Count 365 thou/uL (130-400); RBC Distribution Width 16.5 % (11.5-14.5); Red Blood Cell (RBC) Count 2.48 mill/uL (4.70-6.10); White Blood Cell (WBC) Count 8.4 thou/uL (4.8-10.8)
[2020-06-05 05:24] LABS: Anion Gap 11 mmol/L (10-20); BUN (Urea Nitrogen) 17 mg/dL (8.4-25.7); Calc. Creatinine Clearance 195 mL/min (70-130); Calcium 6.7 mg/dL (7.8-10.44); Carbon Dioxide 28 mmol/L (23-31); Chloride 108 mmol/L (98-107); Glucose 98 mg/dL (80-115); Magnesium 1.9 mg/dL (1.6-2.6); Phosphorus 3.8 mg/dL (2.3-4.7); Potassium 3.6 mmol/L (3.5-5.1); Sodium 143 mmol/L (136-145)
[2020-06-05] MEDS: Levothyroxine 175 MCG TAB PO SCH (06:33)
[2020-06-05] MEDS: Acetaminophen 650 MG/20.3 ML UDCUP PO SCH (06:34)
[2020-06-05] MEDS: Metoclopramide HCl 10 MG/2 ML VIAL IVP SCH (06:37)
[2020-06-05] MEDS ORDERED: Magnesium 2 GM/50 ML 2 GM in Premix Bag 1 BAG IVPB SCH (07:30)
[2020-06-05] MEDS ORDERED: Potassium Phosphate 15 MMOL in Sodium Chloride 0.9% 250 ML 250 ML IVPB SCH (07:30)
[2020-06-05] MEDS: Fluconazole 100 MG TAB PO SCH (08:47)
[2020-06-05] MEDS: Metoprolol Tartrate 25 MG TAB PO SCH ×3 (08:47→20:24)
[2020-06-05] MEDS: Senokot S 8.6-50 MG TAB PO SCH ×3 (08:47→20:23)
[2020-06-05] MEDS: Pantoprazole 40 MG VIAL IVP SCH ×2 (08:47→20:33)
[2020-06-05] MEDS: Tamsulosin HCl 0.4 MG CAP PO SCH (08:47)
[2020-06-05] MEDS: Apixaban 5 MG TAB PO SCH ×2 (08:48→20:24)
[2020-06-05] MEDS: Ibuprofen 200 MG TAB PO SCH ×2 (08:48→20:25)
[2020-06-05] MEDS: Polyethylene Glycol 3350 17 GM Packet PO SCH (09:08)
[2020-06-05] MEDS: Metoclopramide HCl 10 MG TAB PO SCH ×3 (12:04→20:25)
[2020-06-05] MEDS: Acetaminophen 500 MG TAB PO SCH ×2 (12:05→17:48)
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
[2020-06-05] MEDS: Scopolamine 1.5 mg/72 hour Patch TOP SCH (17:47)
[2020-06-05] MEDS ORDERED: Calcium Chloride 13.6 MEQ in Sodium Chloride 0.9% 100 ML IVPB SCH (18:00)
[2020-06-06] MEDS: Acetaminophen 500 MG TAB PO SCH ×4 (00:48→17:18)
[2020-06-06] MEDS: traMADol HCl 50 MG TAB PO SCH ×4 (05:21→22:45)
[2020-06-06] MEDS: Levothyroxine 175 MCG TAB PO SCH ×2 (05:22→06:26)
[2020-06-06 06:01] LABS: #Eosinphils 0.2 thou/uL (0.0-0.7); #Lymphocytes 0.8 thou/uL (1.20-3.40); #Monocytes 0.5 thou/uL (0.11-0.59); #Neutrophils 6.8 thou/uL (1.40-6.50); %Basophils 0.3 % (0.0-1.0); %Eosinophils 2.9 % (0.0-10.0); %Monocytes 5.8 % (0.0-10.0); Hemoglobin 8.6 g/dL (14.0-18.0); Mean Corpuscular HGB CONC 32.2 g/dL (32.0-36.0); Mean Corpuscular Hemoglobin 33.6 pg (27.0-31.0); Mean Platelet Volume 6.9 fL (7.4-10.4); Platelet Count 387 thou/uL (130-400); RBC Distribution Width 16.6 % (11.5-14.5); Red Blood Cell (RBC) Count 2.55 mill/uL (4.70-6.10); White Blood Cell (WBC) Count 8.3 thou/uL (4.8-10.8)
[2020-06-06 06:10] LABS: Anion Gap 13 mmol/L (10-20); BUN (Urea Nitrogen) 15 mg/dL (8.4-25.7); Calc. Creatinine Clearance 210 mL/min (70-130); Calcium 6.6 mg/dL (7.8-10.44); Carbon Dioxide 26 mmol/L (23-31); Chloride 106 mmol/L (98-107); Glucose 82 mg/dL (80-115); Magnesium 1.7 mg/dL (1.6-2.6); Phosphorus 3.1 mg/dL (2.3-4.7); Potassium 3.5 mmol/L (3.5-5.1); Sodium 141 mmol/L (136-145)
[2020-06-06] MEDS: Metoclopramide HCl 10 MG TAB PO SCH ×5 (06:26→21:58)
[2020-06-06] MEDS ORDERED: PHOS-NAK 1 PKT PACK PO SCH (08:00)
[2020-06-06] MEDS ORDERED: Magnesium Sulfate 3 GM in Sodium Chloride 0.9% 100 ML IVPB SCH (08:00)
[2020-06-06] MEDS ORDERED: Potassium Chloride 20 MEQ TAB PO SCH (08:00)
[2020-06-06] MEDS: Ibuprofen 200 MG TAB PO SCH ×2 (08:49→22:45)
[2020-06-06] MEDS: Ascorbic Acid 500 mg Chewable Tablet PO SCH (08:49)
[2020-06-06] MEDS: Zinc Sulfate 220 MG CAP PO SCH ×2 (08:49→08:55)
[2020-06-06] MEDS: Calcitriol 0.25 MCG CAP PO SCH (08:50)
[2020-06-06] MEDS: Apixaban 5 MG TAB PO SCH ×2 (08:50→21:58)
[2020-06-06] MEDS: Tamsulosin HCl 0.4 MG CAP PO SCH (08:50)
[2020-06-06] MEDS: Multivit, Therapeutic 1 TAB PO SCH (08:50)
[2020-06-06] MEDS: Metoprolol Tartrate 25 MG TAB PO SCH ×3 (08:50→22:45)
[2020-06-06] MEDS: Fluconazole 100 MG TAB PO SCH (08:50)
[2020-06-06] MEDS: Pantoprazole 40 MG VIAL IVP SCH (08:51)
[2020-06-06] MEDS: Polyethylene Glycol 3350 17 GM Packet PO SCH (08:51)
[2020-06-06] MEDS: Senokot S 8.6-50 MG TAB PO SCH ×2 (08:51→22:45)
[2020-06-06] MEDS: Ondansetron PF 4 MG/2 ML Vial IVP PRN ×2 (11:15→17:17)
[2020-06-06] MEDS: Promethazine HCl 25 MG/ML VIAL IM PRN (12:56)
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
[2020-06-06] MEDS: Erythromycin 250 MG in Sodium Chloride 0.9% 250 ML 250 ML IVPB SCH ×2 (15:46→21:59)
[2020-06-06] MEDS ORDERED: Erythromycin 250 MG in Sodium Chloride 0.9% 250 ML 250 ML IVPB SCH (18:00)
[2020-06-06] MEDS ORDERED: Calcium Carbonate 500 MG ChewTAB PO PRN (22:08)
[2020-06-07] MEDS: Acetaminophen 500 MG TAB PO SCH ×3 (00:43→17:01)
[2020-06-07] MEDS ORDERED: Ondansetron PF 4 MG/2 ML Vial ONE (02:21)
[2020-06-07] MEDS: Erythromycin 250 MG in Sodium Chloride 0.9% 250 ML 250 ML IVPB SCH ×4 (03:14→20:27)
[2020-06-07] MEDS ORDERED: Metoclopramide HCl 10 MG TAB ONE ×2 (05:28→11:19)
[2020-06-07] MEDS: Metoclopramide HCl 10 MG TAB PO SCH ×4 (05:30→20:29)
[2020-06-07] MEDS ORDERED: Fluconazole 100 MG TAB ONE (08:23)
[2020-06-07] MEDS ORDERED: Apixaban 5 MG TAB ONE (08:23)
[2020-06-07] MEDS ORDERED: Tamsulosin HCl 0.4 MG CAP ONE (08:24)
[2020-06-07] MEDS ORDERED: Metoprolol Tartrate 25 MG TAB ONE ×2 (08:24→14:09)
[2020-06-07] MEDS ORDERED: Ibuprofen 200 MG TAB ONE (08:24)
[2020-06-07] MEDS ORDERED: traMADol HCl 50 MG TAB ONE ×2 (08:25→14:08)
[2020-06-07] MEDS: Apixaban 5 MG TAB PO SCH ×2 (09:20→20:27)
[2020-06-07] MEDS: Ibuprofen 200 MG TAB PO SCH ×2 (09:20→20:28)
[2020-06-07] MEDS: Calcitriol 0.25 MCG CAP PO SCH (09:20)
[2020-06-07] MEDS: traMADol HCl 50 MG TAB PO SCH ×4 (09:20→20:29)
[2020-06-07] MEDS: Tamsulosin HCl 0.4 MG CAP PO SCH (09:20)
[2020-06-07] MEDS: Ascorbic Acid 500 mg Chewable Tablet PO SCH (09:20)
[2020-06-07] MEDS: Fluconazole 100 MG TAB PO SCH (09:20)
[2020-06-07] MEDS: Metoprolol Tartrate 25 MG TAB PO SCH ×3 (09:20→20:32)
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
[2020-06-07] MEDS: Multivit, Therapeutic 1 TAB PO SCH (14:53)
[2020-06-07] MEDS: Polyethylene Glycol 3350 17 GM Packet PO SCH (14:53)
[2020-06-07] MEDS: Senokot S 8.6-50 MG TAB PO SCH ×2 (14:53→20:32)
[2020-06-07] MEDS: Zinc Sulfate 220 MG CAP PO SCH (14:54)
[2020-06-07 15:19] LABS: Anion Gap 16 mmol/L (10-20); BUN (Urea Nitrogen) 18 mg/dL (8.4-25.7); Calc. Creatinine Clearance 203 mL/min (70-130); Calcium 6.8 mg/dL (7.8-10.44); Carbon Dioxide 24 mmol/L (23-31); Chloride 104 mmol/L (98-107); Glucose 82 mg/dL (80-115); Magnesium 1.7 mg/dL (1.6-2.6); Phosphorus 3.3 mg/dL (2.3-4.7); Potassium 3.3 mmol/L (3.5-5.1); Sodium 141 mmol/L (136-145)
[2020-06-07 16:21] LABS: #Lymphocytes 0.6 thou/uL (1.20-3.40); #Monocytes 0.5 thou/uL (0.11-0.59); #Neutrophils 9.6 thou/uL (1.40-6.50); %Basophils 0.2 % (0.0-1.0); %Eosinophils 0.2 % (0.0-10.0); %Lymphocytes 5.7 % (21.0-51.0); %Monocytes 4.8 % (0.0-10.0); Anisocytosis SLIGHT = 6-15 cells (100X) (0-5/hpf); Hemoglobin 8.6 g/dL (14.0-18.0); MDiff Complete? YES; Macrocytosis SLIGHT = 6-15 cells (100X) (0-5/hpf); Mean Corpuscular HGB CONC 31.6 g/dL (32.0-36.0); Mean Corpuscular Hemoglobin 33.8 pg (27.0-31.0); Mean Platelet Volume 7.2 fL (7.4-10.4); Platelet Count 384 thou/uL (130-400); Platelet Morphology Comment Appears Adequate; Polychromasia MODERATE = 3-4 cells (100X) (0-2/hpf); RBC Distribution Width 17.2 % (11.5-14.5); Red Blood Cell (RBC) Count 2.54 mill/uL (4.70-6.10); Target Cells SLIGHT = 2-5 cells (100X) (0-1/hpf); White Blood Cell (WBC) Count 10.8 thou/uL (4.8-10.8)
[2020-06-07] MEDS ORDERED: Calcium Chloride 13.6 MEQ in Sodium Chloride 0.9% 100 ML IVPB SCH (17:15)
[2020-06-07] MEDS ORDERED: Magnesium 2 GM/50 ML 2 GM in Premix Bag 1 BAG IVPB SCH (17:15)
[2020-06-07] MEDS ORDERED: Potassium Chloride 40 MEQ in Sodium Chloride 0.9% 250 ML 250 ML IVPB SCH (17:30)
[2020-06-08] MEDS: Acetaminophen 500 MG TAB PO SCH ×4 (01:02→17:59)
[2020-06-08] MEDS: Erythromycin 250 MG in Sodium Chloride 0.9% 250 ML 250 ML IVPB SCH ×2 (03:54→08:40)
[2020-06-08] MEDS: traMADol HCl 50 MG TAB PO SCH ×2 (04:10→08:35)
[2020-06-08] MEDS: Levothyroxine 175 MCG TAB PO SCH (05:16)
[2020-06-08] MEDS: Apixaban 5 MG TAB PO SCH ×2 (08:35→20:19)
[2020-06-08] MEDS: Calcitriol 0.25 MCG CAP PO SCH (08:36)
[2020-06-08] MEDS: Ascorbic Acid 500 mg Chewable Tablet PO SCH (08:37)
[2020-06-08] MEDS: Zinc Sulfate 220 MG CAP PO SCH (08:37)
[2020-06-08] MEDS: Tamsulosin HCl 0.4 MG CAP PO SCH (08:38)
[2020-06-08] MEDS: Senokot S 8.6-50 MG TAB PO SCH ×2 (08:38→22:03)
[2020-06-08] MEDS: Multivit, Therapeutic 1 TAB PO SCH (08:38)
[2020-06-08] MEDS: Fluconazole 100 MG TAB PO SCH (08:38)
[2020-06-08] MEDS: Metoprolol Tartrate 25 MG TAB PO SCH ×3 (08:39→20:19)
[2020-06-08] MEDS: Metoclopramide HCl 10 MG TAB PO SCH ×4 (08:39→20:20)
[2020-06-08] MEDS: Ibuprofen 200 MG TAB PO SCH ×2 (08:39→22:03)
[2020-06-08] MEDS: Polyethylene Glycol 3350 17 GM Packet PO SCH (08:40)
[2020-06-08] MEDS ORDERED: Furosemide 20 MG/2 ML VIAL SLOW IVP SCH (10:45)
[2020-06-08] MEDS: Furosemide 20 MG/2 ML VIAL SLOW IVP SCH ×2 (13:07→20:20)
[2020-06-08 14:27] VITALS: BMI 44.9
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
[2020-06-08] MEDS ORDERED: Potassium Chloride 20 MEQ TAB PO SCH (17:45)
[2020-06-08] MEDS ORDERED: Magnesium 2 GM/50 ML 2 GM in Premix Bag 1 BAG IVPB SCH (18:00)
[2020-06-09] MEDS: Acetaminophen 500 MG TAB PO SCH ×4 (00:52→17:11)
[2020-06-09] MEDS: Metoclopramide HCl 10 MG TAB PO SCH (05:52)
[2020-06-09] MEDS: Levothyroxine 175 MCG TAB PO SCH (05:52)
[2020-06-09] MEDS: Apixaban 5 MG TAB PO SCH ×2 (09:33→19:54)
[2020-06-09] MEDS: Furosemide 20 MG/2 ML VIAL SLOW IVP SCH ×3 (09:33→19:54)
[2020-06-09] MEDS: Multivit, Therapeutic 1 TAB PO SCH (09:33)
[2020-06-09] MEDS: Zinc Sulfate 220 MG CAP PO SCH (09:33)
[2020-06-09] MEDS: Fluconazole 100 MG TAB PO SCH (09:34)
[2020-06-09] MEDS: Metoprolol Tartrate 25 MG TAB PO SCH ×3 (09:34→19:55)
[2020-06-09] MEDS: Ascorbic Acid 500 mg Chewable Tablet PO SCH (09:34)
[2020-06-09] MEDS: Ibuprofen 200 MG TAB PO SCH ×2 (09:35→19:55)
[2020-06-09] MEDS: Calcitriol 0.25 MCG CAP PO SCH (09:35)
[2020-06-09] MEDS: Senokot S 8.6-50 MG TAB PO SCH (09:36)
[2020-06-09] MEDS: Tamsulosin HCl 0.4 MG CAP PO SCH (09:36)
[2020-06-09] MEDS: Polyethylene Glycol 3350 17 GM Packet PO SCH (09:36)
[2020-06-09 09:54] LABS: #Eosinphils 0.1 thou/uL (0.0-0.7); #Lymphocytes 0.6 thou/uL (1.20-3.40); #Monocytes 0.5 thou/uL (0.11-0.59); %Eosinophils 1.4 % (0.0-10.0); %Lymphocytes 8.6 % (21.0-51.0); %Monocytes 7.2 % (0.0-10.0); %Neutrophils 82.9 % (42.0-75.0); Hemoglobin 8.7 g/dL (14.0-18.0); Mean Corpuscular HGB CONC 34.2 g/dL (32.0-36.0); Mean Corpuscular Hemoglobin 36.1 pg (27.0-31.0); Platelet Count 319 thou/uL (130-400); RBC Distribution Width 16.7 % (11.5-14.5); Red Blood Cell (RBC) Count 2.41 mill/uL (4.70-6.10); White Blood Cell (WBC) Count 7.3 thou/uL (4.8-10.8)
[2020-06-09 10:19] LABS: Anion Gap 13 mmol/L (10-20); BUN (Urea Nitrogen) 11 mg/dL (8.4-25.7); Calc. Creatinine Clearance 224 mL/min (70-130); Calcium 6.5 mg/dL (7.8-10.44); Carbon Dioxide 28 mmol/L (23-31); Chloride 101 mmol/L (98-107); Glucose 105 mg/dL (80-115); Magnesium 1.4 mg/dL (1.6-2.6); Phosphorus 2.2 mg/dL (2.3-4.7); Sodium 139 mmol/L (136-145)
[2020-06-09 10:27] LABS: Potassium 2.8 mmol/L (3.5-5.1)
[2020-06-09] MEDS ORDERED: Magnesium Sulfate 4 GM in Sodium Chloride 0.9% 250 ML 250 ML IVPB SCH (11:00)
[2020-06-09] MEDS ORDERED: Potassium Phosphate 30 MMOL, Magnesium Sulfate 4 GM in Sodium Chloride 0.9% 250 ML 250 ML IVPB SCH (11:00)
[2020-06-09] MEDS ORDERED: Furosemide 20 MG/2 ML VIAL SLOW IVP SCH (11:00)
[2020-06-09] MEDS ORDERED: Potassium Phosphate 30 MMOL in Sodium Chloride 0.9% 250 ML 250 ML IVPB SCH (11:00)
--- NOTE | 2020-06-09 14:59 | EKG ---
Test Reason : C/P Blood Pressure : / mmHG Vent. Rate : 114 BPM Atrial Rate : 150 BPM P-R Int : 000 ms QRS Dur : 118 ms QT Int : 364 ms P-R-T Axes : 000 -37 066 degrees QTc Int : 501 ms Atrial fibrillation with rapid ventricular response with premature ventricular or aberrantly conducte d complexes Left axis deviation Incomplete left bundle branch block Abnormal ECG When compared with ECG of 21-MAY-2020 20:36, T wave inversion no longer evident in Lateral leads Confirmed by ÁNGEL WOODARD (2) on 06/09/2020 2:59:06 PM Referred By: YONIS Confirmed By:ÁNGEL WOODARD
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
[2020-06-10] MEDS: Acetaminophen 500 MG TAB PO SCH ×4 (00:09→18:53)
[2020-06-10] MEDS: Levothyroxine 175 MCG TAB PO SCH (06:18)
[2020-06-10 06:40] LABS: #Eosinphils 0.1 thou/uL (0.0-0.7); #Lymphocytes 0.9 thou/uL (1.20-3.40); #Monocytes 0.5 thou/uL (0.11-0.59); #Neutrophils 6.1 thou/uL (1.40-6.50); %Basophils 0.2 % (0.0-1.0); %Eosinophils 1.1 % (0.0-10.0); %Lymphocytes 12.3 % (21.0-51.0); %Monocytes 6.3 % (0.0-10.0); %Neutrophils 80.1 % (42.0-75.0); Mean Corpuscular HGB CONC 32.3 g/dL (32.0-36.0); Mean Corpuscular Hemoglobin 33.8 pg (27.0-31.0); Mean Platelet Volume 6.7 fL (7.4-10.4); Platelet Count 330 thou/uL (130-400); RBC Distribution Width 16.7 % (11.5-14.5); Red Blood Cell (RBC) Count 2.65 mill/uL (4.70-6.10); White Blood Cell (WBC) Count 7.6 thou/uL (4.8-10.8)
[2020-06-10 07:03] LABS: Anion Gap 13 mmol/L (10-20); BUN (Urea Nitrogen) 9 mg/dL (8.4-25.7); Calc. Creatinine Clearance 286 mL/min (70-130); Calcium 6.8 mg/dL (7.8-10.44); Carbon Dioxide 34 mmol/L (23-31); Chloride 97 mmol/L (98-107); Glucose 93 mg/dL (80-115); Magnesium 1.6 mg/dL (1.6-2.6); Phosphorus 3.6 mg/dL (2.3-4.7); Potassium 2.6 mmol/L (3.5-5.1); Sodium 141 mmol/L (136-145)
[2020-06-10] MEDS ORDERED: Magnesium Sulfate 4 GM in Sodium Chloride 0.9% 250 ML 250 ML IVPB SCH (07:30)
[2020-06-10] MEDS ORDERED: Potassium Phosphate 30 MMOL in Sodium Chloride 0.9% 250 ML 250 ML IVPB SCH (07:30)
[2020-06-10] MEDS ORDERED: SODIUM CHLORIDE 0.9% IVPB SCH (09:00)
[2020-06-10] MEDS ORDERED: MAGNESIUM SULFATE IVPB SCH (09:00)
[2020-06-10] MEDS ORDERED: POTASSIUM CHLORIDE IVPB SCH (09:00)
[2020-06-10] MEDS: Multivit, Therapeutic 1 TAB PO SCH (10:05)
[2020-06-10] MEDS: Calcitriol 0.25 MCG CAP PO SCH (10:05)
[2020-06-10] MEDS: Metoprolol Tartrate 25 MG TAB PO SCH ×3 (10:06→21:59)
[2020-06-10] MEDS: Ibuprofen 200 MG TAB PO SCH ×2 (10:06→21:58)
[2020-06-10] MEDS: Ascorbic Acid 500 mg Chewable Tablet PO SCH (10:07)
[2020-06-10] MEDS: Apixaban 5 MG TAB PO SCH ×2 (10:07→22:00)
[2020-06-10] MEDS: Tamsulosin HCl 0.4 MG CAP PO SCH (10:07)
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
[2020-06-11] MEDS: Acetaminophen 500 MG TAB PO SCH ×3 (02:32→12:51)
[2020-06-11] MEDS: Levothyroxine 175 MCG TAB PO SCH (05:31)
[2020-06-11 06:00] LABS: #Eosinphils 0.1 thou/uL (0.0-0.7); #Lymphocytes 0.9 thou/uL (1.20-3.40); #Monocytes 0.5 thou/uL (0.11-0.59); %Basophils 0.5 % (0.0-1.0); %Eosinophils 1.8 % (0.0-10.0); %Lymphocytes 14.1 % (21.0-51.0); %Monocytes 7.1 % (0.0-10.0); %Neutrophils 76.5 % (42.0-75.0); Mean Corpuscular HGB CONC 32.4 g/dL (32.0-36.0); Mean Platelet Volume 6.9 fL (7.4-10.4); Platelet Count 317 thou/uL (130-400); RBC Distribution Width 16.8 % (11.5-14.5); Red Blood Cell (RBC) Count 2.65 mill/uL (4.70-6.10); White Blood Cell (WBC) Count 6.5 thou/uL (4.8-10.8)
[2020-06-11 06:19] LABS: Anion Gap 11 mmol/L (10-20); BUN (Urea Nitrogen) 10 mg/dL (8.4-25.7); Calc. Creatinine Clearance 237 mL/min (70-130); Calcium 6.7 mg/dL (7.8-10.44); Carbon Dioxide 36 mmol/L (23-31); Chloride 98 mmol/L (98-107); Glucose 88 mg/dL (80-115); Magnesium 1.7 mg/dL (1.6-2.6); Phosphorus 3.6 mg/dL (2.3-4.7); Sodium 142 mmol/L (136-145)
[2020-06-11 06:21] LABS: Potassium 2.8 mmol/L (3.5-5.1)
[2020-06-11] MEDS ORDERED: Magnesium Sulfate 3 GM in Sodium Chloride 0.9% 100 ML IV SCH (06:30)
[2020-06-11] MEDS ORDERED: Potassium Chloride 30 MEQ in Sodium Chloride 0.9% 250 ML 250 ML IVPB SCH (07:15)
[2020-06-11] MEDS ORDERED: Potassium Chloride 20 MEQ TAB PO SCH (08:00)
[2020-06-11] MEDS: Ascorbic Acid 500 mg Chewable Tablet PO SCH (09:33)
[2020-06-11] MEDS: Tamsulosin HCl 0.4 MG CAP PO SCH (09:33)
[2020-06-11] MEDS: Ibuprofen 200 MG TAB PO SCH (09:34)
[2020-06-11] MEDS: Metoprolol Tartrate 25 MG TAB PO SCH ×2 (09:35→15:37)
[2020-06-11] MEDS: Apixaban 5 MG TAB PO SCH (09:35)
[2020-06-11] MEDS: Calcitriol 0.25 MCG CAP PO SCH (09:36)
[2020-06-11] MEDS: Multivit, Therapeutic 1 TAB PO SCH (09:37)
[2020-06-11 12:10] LABS: Anion Gap 12 mmol/L (10-20); BUN (Urea Nitrogen) 10 mg/dL (8.4-25.7); Calc. Creatinine Clearance 241 mL/min (70-130); Calcium 6.8 mg/dL (7.8-10.44); Carbon Dioxide 33 mmol/L (23-31); Chloride 99 mmol/L (98-107); Glucose 90 mg/dL (80-115); Potassium 3.3 mmol/L (3.5-5.1); Sodium 141 mmol/L (136-145)
[2020-06-11 15:42] VITALS: BP 129/78; TEMP 98.4
== END 2020-06-11 16:34 | DRG 503 ==
LOC: ERS 17:57 → SDC/OP 21:10 → IMCU/EMU 21:20 → 2SE 05-22 11:03 → SURG A 05-23 11:39 → 2SE 05-23 14:01 → SJJU 05-24 14:37 → IMCU/EMU 05-26 19:24 → SURG A 05-30 17:42
PROVIDERS: ADMIT Surgery; ATTEND Surgery
PROC: 0QSL04Z Reposition Right Tarsal with Internal Fixation Device, Open Approach (ICD-10-PCS; principal; 2020-05-21)
PROC: 0QS4XZZ Reposition Right Acetabulum, External Approach (ICD-10-PCS; 2020-05-21)
PROC: 0QSQXZZ Reposition Right Toe Phalanx, External Approach (ICD-10-PCS; 2020-05-21)
PROC: 0QS404Z Reposition Right Acetabulum with Internal Fixation Device, Open Approach (ICD-10-PCS; 2020-05-23)
PROC: 30233N1 Transfusion of Nonautologous Red Blood Cells into Peripheral Vein, Percutaneous Approach (ICD-10-PCS; 2020-05-24)
PROC: 0WJG0ZZ Inspection of Peritoneal Cavity, Open Approach (ICD-10-PCS; 2020-05-26)
PROC: 0WJG0ZZ Inspection of Peritoneal Cavity, Open Approach (ICD-10-PCS; 2020-05-28)
DX: S92.111A Displaced fracture of neck of right talus, initial encounter for closed fracture (principal); S32.421A Displaced fracture of posterior wall of right acetabulum, initial encounter for closed fracture; K65.9 Peritonitis, unspecified; K63.1 Perforation of intestine (nontraumatic); J96.00 Acute respiratory failure, unspecified whether with hypoxia or hypercapnia; S73.004A Unspecified dislocation of right hip, initial encounter; S22.43XA Multiple fractures of ribs, bilateral, initial encounter for closed fracture; N17.9 Acute kidney failure, unspecified; M62.82 Rhabdomyolysis; E27.40 Unspecified adrenocortical insufficiency; D62 Acute posthemorrhagic anemia; I48.20 Chronic atrial fibrillation, unspecified; B37.49 Other urogenital candidiasis; K56.0 Paralytic ileus; E78.00 Pure hypercholesterolemia, unspecified; S51.011A Laceration without foreign body of right elbow, initial encounter; S93.124A Dislocation of metatarsophalangeal joint of right lesser toe(s), initial encounter; I10 Essential (primary) hypertension; E03.9 Hypothyroidism, unspecified; S82.891A Other fracture of right lower leg, initial encounter for closed fracture; Z20.822 Contact with and (suspected) exposure to COVID-19; S93.121A Dislocation of metatarsophalangeal joint of right great toe, initial encounter; K59.81 Ogilvie syndrome; E87.6 Hypokalemia; E83.42 Hypomagnesemia; E83.51 Hypocalcemia; E83.39 Other disorders of phosphorus metabolism; V49.49XA Driver injured in collision with other motor vehicles in traffic accident, initial encounter; Z90.49 Acquired absence of other specified parts of digestive tract
CPT/HCPCS: 0240U; 36415; 36416; 36430; 36600; 51702; 70450; 71045; 71260; 72125; 72192; 74018; 74022; 74177; 76000; 80048; 80053; 80076; 80307; 81001; 81003; 82040; 82533; 82550; 82553; 82805; 83605; 83690; 83735; 83880; 84100; 84484; 85007; 85025; 85027; 85610; 85730; 86850; 86900; 86901; 87086; 87324; 87449; 90471; 90715; 93005; 93010; 93306; 94002; 94003; 94640; 94660; 96365; 96367; 96375; 96376; C1713; C1751; C1769; C9113; G0390; J0282; J0690; J1100; J1160; J1364; J1650; J1720; J1885; J1940; J2001; J2250; J2270; J2370; J2405; J2543; J2550; J2704; J2710; J2765; J3010; J3475; J3480; J3490; J7030; J7050; J7070; J7620; P9016; P9045; P9047; Q0162; Q9967; S0028

== ENCOUNTER 2020-08-12 12:41 | Inpatient (IN) | payer MEDICARE ==
[2020-08-12] MEDS ORDERED: Morphine 4 MG/ML VIAL ONE ×2 (13:02→14:27)
[2020-08-12] MEDS ORDERED: Metoprolol Tartrate 5 MG/5 ML VIAL ONE (13:02)
[2020-08-12 13:25] LABS: #Eosinphils 0.2 thou/uL (0.0-0.7); #Lymphocytes 2.5 thou/uL (1.20-3.40); #Monocytes 0.5 thou/uL (0.11-0.59); #Neutrophils 4.7 thou/uL (1.40-6.50); %Basophils 0.4 % (0.0-1.0); %Eosinophils 2.1 % (0.0-10.0); %Lymphocytes 31.4 % (21.0-51.0); %Monocytes 6.4 % (0.0-10.0); %Neutrophils 59.7 % (42.0-75.0); Hemoglobin 14.8 g/dL (14.0-18.0); Mean Corpuscular HGB CONC 32.5 g/dL (32.0-36.0); Mean Corpuscular Volume 98.3 fL (78.0-98.0); Platelet Count 290 thou/uL (130-400); RBC Distribution Width 12.9 % (11.5-14.5); Red Blood Cell (RBC) Count 4.63 mill/uL (4.70-6.10); White Blood Cell (WBC) Count 7.9 thou/uL (4.8-10.8)
[2020-08-12 13:52] LABS: ALT (SGPT) 30 U/L (8-55); AST (SGOT) 55 U/L (5-34); Albumin 3.7 g/dL (3.4-4.8); Alkaline Phosphatase 140 U/L (40-110); Anion Gap 17 mmol/L (10-20); BUN (Urea Nitrogen) 9 mg/dL (8.4-25.7); Bilirubin, Total 0.7 mg/dL (0.2-1.2); Calc. Creatinine Clearance 0 mL/min (70-130); Calcium 9.1 mg/dL (7.8-10.44); Carbon Dioxide 28 mmol/L (23-31); Chloride 101 mmol/L (98-107); Globulin 3.9 g/dL (2.4-3.5); Glucose 90 mg/dL (80-115); Protein, Total 7.6 g/dL (5.8-8.1); Sodium 141 mmol/L (136-145)
[2020-08-12] MEDS ORDERED: traMADol HCl 50 MG TAB PO PRN (14:20)
[2020-08-12] MEDS ORDERED: HYDROcodone/Acetaminophen 10/325 mg Tablet PO PRN (14:20)
[2020-08-12] MEDS ORDERED: Milk Of Magnesia 30 ML UDCUP PO PRN (14:20)
[2020-08-12] MEDS ORDERED: Morphine 4 MG/ML VIAL SLOW IVP PRN ×2 (14:20→14:53)
[2020-08-12] MEDS ORDERED: Acetaminophen/Codeine 30-300mg Tablet PO PRN (14:20)
[2020-08-12] MEDS ORDERED: Promethazine HCl 25 MG/ML VIAL IM PRN (14:20)
[2020-08-12] MEDS ORDERED: Bisacodyl 10 MG SUPP PR PRN (14:20)
[2020-08-12] MEDS ORDERED: Acetaminophen 325 MG TAB PO PRN (14:20)
[2020-08-12] MEDS ORDERED: CEFAZOLIN 2 GM in Premix Bag 1 BAG IVPB SCH ×2 (14:30→18:00)
[2020-08-12] MEDS ORDERED: Communication Order-Pharmacy FS SCH (14:30)
[2020-08-12] MEDS ORDERED: Calcium Carbonate 500 MG ChewTAB PO PRN (14:31)
[2020-08-12] MEDS ORDERED: Scopolamine 1.5 mg/72 hour Patch TOP SCH (14:45)
[2020-08-12] MEDS ORDERED: HYDROcodone/Acetaminophen 10/325 mg Tablet ONE (16:52)
[2020-08-12] MEDS ORDERED: Metoprolol Tartrate 25 MG TAB ONE ×2 (16:53→16:54)
[2020-08-12] MEDS ORDERED: Metoclopramide HCl 10 MG TAB ONE (16:53)
[2020-08-12] MEDS: Metoprolol Tartrate 25 MG TAB PO SCH ×2 (17:02→21:19)
[2020-08-12] MEDS: Metoclopramide HCl 10 MG TAB PO SCH ×2 (17:02→21:19)
[2020-08-12] MEDS: HYDROcodone/Acetaminophen 10/325 mg Tablet PO PRN ×2 (17:03→21:21)
[2020-08-12] MEDS: Sodium Chloride 0.9% 100 ML IV SCH ×5 (18:55→22:32)
[2020-08-12] MEDS: tiZANidine HCl 4 MG TAB PO SCH ×3 (18:56→22:29)
[2020-08-12] MEDS: Ketorolac Tromethamine 30 MG/ML VIAL IVP SCH ×2 (18:57→22:31)
[2020-08-12] MEDS: Aspirin 81 mg Enteric Coated Tablet PO SCH (21:23)
[2020-08-13] MEDS: HYDROcodone/Acetaminophen 10/325 mg Tablet PO PRN ×4 (02:16→20:08)
[2020-08-13] MEDS: tiZANidine HCl 4 MG TAB PO SCH ×6 (02:16→21:41)
[2020-08-13 03:04] LABS: SARS-CoV-2 NAA Rapid Test Not Detected (NotDetected)
[2020-08-13] MEDS: Sodium Chloride 0.9% 1,000 ML IV SCH ×4 (03:23→20:02)
[2020-08-13 04:26] LABS: #Eosinphils 0.2 thou/uL (0.0-0.7); #Lymphocytes 1.9 thou/uL (1.20-3.40); #Monocytes 0.4 thou/uL (0.11-0.59); #Neutrophils 2.9 thou/uL (1.40-6.50); %Basophils 0.9 % (0.0-1.0); %Lymphocytes 34.7 % (21.0-51.0); %Monocytes 7.5 % (0.0-10.0); Hemoglobin 12.2 g/dL (14.0-18.0); Mean Corpuscular Hemoglobin 32.5 pg (27.0-31.0); Mean Corpuscular Volume 98.3 fL (78.0-98.0); Mean Platelet Volume 7.9 fL (7.4-10.4); Platelet Count 221 thou/uL (130-400); RBC Distribution Width 12.8 % (11.5-14.5); Red Blood Cell (RBC) Count 3.77 mill/uL (4.70-6.10); White Blood Cell (WBC) Count 5.5 thou/uL (4.8-10.8)
[2020-08-13 04:58] LABS: AST (SGOT) 147 U/L (5-34); Bilirubin, Total 0.7 mg/dL (0.2-1.2); Calcium 8.6 mg/dL (7.8-10.44); Chloride 100 mmol/L (98-107); Potassium 3.4 mmol/L (3.5-5.1); Sodium 135 mmol/L (136-145)
[2020-08-13 05:04] LABS: Glucose 90 mg/dL (80-115)
[2020-08-13 05:05] LABS: Globulin 2.9 g/dL (2.4-3.5); Protein, Total 5.9 g/dL (5.8-8.1)
[2020-08-13 05:06] LABS: Anion Gap 13 mmol/L (10-20); Carbon Dioxide 25 mmol/L (23-31)
[2020-08-13 05:07] LABS: Alkaline Phosphatase 275 U/L (40-110)
[2020-08-13 05:08] LABS: Calc. Creatinine Clearance 165 mL/min (70-130)
[2020-08-13 05:09] LABS: BUN (Urea Nitrogen) 8 mg/dL (8.4-25.7)
[2020-08-13 05:10] LABS: ALT (SGPT) 111 U/L (8-55)
[2020-08-13] MEDS: Ketorolac Tromethamine 30 MG/ML VIAL IVP SCH ×3 (05:58→16:31)
[2020-08-13] MEDS: Levothyroxine 175 MCG TAB PO SCH (06:15)
[2020-08-13] MEDS ORDERED: Tranexamic Acid 1,000 MG in Sodium Chloride 0.9% 250 ML 250 ML IVPB ONE (07:30)
[2020-08-13] MEDS: Metoclopramide HCl 10 MG TAB PO SCH (07:59)
[2020-08-13] MEDS: Aspirin 81 mg Enteric Coated Tablet PO SCH ×2 (07:59→20:03)
[2020-08-13] MEDS: Calcitriol 0.25 MCG CAP PO SCH (08:00)
[2020-08-13] MEDS: Metoprolol Tartrate 25 MG TAB PO SCH ×3 (08:00→20:03)
[2020-08-13] MEDS: Tamsulosin HCl 0.4 MG CAP PO SCH (08:04)
[2020-08-13] MEDS ORDERED: Fluconazole 100 MG TAB PO SCH (09:00)
[2020-08-13] MEDS ORDERED: Potassium Chloride 20 MEQ TAB PO SCH (12:15)
[2020-08-13] MEDS ORDERED: Diltiazem HCl 125 MG, Admixture Fee 1 EACH in Sodium Chloride 0.9% 100 ML IVPB SCH (14:30)
[2020-08-13] MEDS: Acetaminophen/Codeine 30-300mg Tablet PO PRN ×2 (18:19→21:44)
[2020-08-13] MEDS ORDERED: Spironolactone 25 MG TAB PO SCH (19:30)
[2020-08-14] MEDS: tiZANidine HCl 4 MG TAB PO SCH ×6 (02:43→22:52)
[2020-08-14] MEDS: HYDROcodone/Acetaminophen 10/325 mg Tablet PO PRN ×3 (04:40→21:37)
[2020-08-14 04:59] LABS: #Eosinphils 0.2 thou/uL (0.0-0.7); #Lymphocytes 1.7 thou/uL (1.20-3.40); #Monocytes 0.3 thou/uL (0.11-0.59); #Neutrophils 4.4 thou/uL (1.40-6.50); %Basophils 0.4 % (0.0-1.0); %Lymphocytes 25.5 % (21.0-51.0); %Monocytes 4.9 % (0.0-10.0); %Neutrophils 66.1 % (42.0-75.0); Mean Corpuscular HGB CONC 32.9 g/dL (32.0-36.0); Mean Corpuscular Hemoglobin 32.1 pg (27.0-31.0); Mean Corpuscular Volume 97.6 fL (78.0-98.0); Mean Platelet Volume 7.5 fL (7.4-10.4); Platelet Count 212 thou/uL (130-400); RBC Distribution Width 12.8 % (11.5-14.5); Red Blood Cell (RBC) Count 3.41 mill/uL (4.70-6.10); White Blood Cell (WBC) Count 6.6 thou/uL (4.8-10.8)
[2020-08-14 05:21] LABS: ALT (SGPT) 71 U/L (8-55); AST (SGOT) 54 U/L (5-34); Albumin 2.8 g/dL (3.4-4.8); Alkaline Phosphatase 210 U/L (40-110); Anion Gap 12 mmol/L (10-20); BUN (Urea Nitrogen) 6 mg/dL (8.4-25.7); Bilirubin, Total 0.5 mg/dL (0.2-1.2); Calc. Creatinine Clearance 186 mL/min (70-130); Calcium 8.3 mg/dL (7.8-10.44); Carbon Dioxide 24 mmol/L (23-31); Chloride 104 mmol/L (98-107); Globulin 2.7 g/dL (2.4-3.5); Glucose 93 mg/dL (80-115); Potassium 3.3 mmol/L (3.5-5.1); Protein, Total 5.5 g/dL (5.8-8.1); Sodium 137 mmol/L (136-145)
[2020-08-14] MEDS: Sodium Chloride 0.9% 1,000 ML IV SCH (06:25)
[2020-08-14] MEDS: Levothyroxine 175 MCG TAB PO SCH (06:25)
[2020-08-14] MEDS: Metoprolol Tartrate 25 MG TAB PO SCH ×3 (07:27→22:02)
[2020-08-14] MEDS ORDERED: Tranexamic Acid 1,000 MG in Sodium Chloride 0.9% 250 ML 250 ML IVPB ONE (07:30)
[2020-08-14] MEDS ORDERED: Potassium Chloride 20 MEQ in Premix Bag 1 BAG IVPB SCH (07:30)
[2020-08-14] MEDS ORDERED: Fentanyl 100 MCG/2 ML VIAL ONE ×2 (07:34→10:40)
[2020-08-14] MEDS ORDERED: Tranexamic Acid 1,000 MG/10 ML VIAL ONE (07:57)
[2020-08-14] MEDS ORDERED: Sodium Chloride 0.9% 100 ML ONE (07:58)
[2020-08-14] MEDS ORDERED: Meperidine HCl/PF 25 MG/ML VIAL SLOW IVP PRN ×2 (08:00)
[2020-08-14] MEDS ORDERED: Promethazine HCl 25 MG/ML VIAL IM PRN (08:00)
[2020-08-14] MEDS ORDERED: Ondansetron HCl/PF 4 MG/2 ML Vial IVP PRN (08:00)
[2020-08-14] MEDS ORDERED: Promethazine HCl 25 MG/ML VIAL SLOW IVP PRN (08:00)
[2020-08-14] MEDS ORDERED: Morphine Sulfate 2 MG/ML SYRINGE SLOW IVP PRN (08:00)
[2020-08-14] MEDS ORDERED: HYDROmorphone 2 MG/ML VIAL SLOW IVP PRN (08:00)
[2020-08-14] MEDS ORDERED: Dexamethasone 20 MG/5 ML VIAL ONE (08:03)
[2020-08-14] MEDS ORDERED: PROPOFOL 200 MG/20 ML VIAL ONE (08:03)
[2020-08-14] MEDS ORDERED: Lidocaine 1% PF 5 ML VIAL ONE (08:03)
[2020-08-14] MEDS ORDERED: Rocuronium Bromide 10 MG/ML (10ML VIAL) ONE (08:03)
[2020-08-14] MEDS ORDERED: Ondansetron PF 4 MG/2 ML Vial ONE (08:03)
[2020-08-14] MEDS ORDERED: PHENYLEPHRINE-NS 100 MCG/ML 10 ML SYRINGE ONE (08:03)
[2020-08-14 09:59] LABS: Glucose 65 mg/dL (80-115)
[2020-08-14] MEDS ORDERED: SUGAMMADEX SODIUM 200 MG/2 ML VIAL ONE (10:08)
[2020-08-14 10:17] LABS: RBC Count-Automated (BF) 730895 /cu.mm; WBC/Nucleated-Auto (BF) 1438 uL
[2020-08-14 10:18] LABS: Tube # EDTA
[2020-08-14 10:19] LABS: BF Color Red; Clarity Cloudy/Turbid (Clear)
[2020-08-14 10:31] LABS: BF Segmented Neutrophils 75 %; Cell Count Non Hematic 16 %; Lymphocytes 9 %
[2020-08-14] MEDS ORDERED: HYDROmorphone 2 MG/ML VIAL ONE (10:40)
[2020-08-14] MEDS: Aspirin 81 mg Enteric Coated Tablet PO SCH ×2 (13:01→21:36)
[2020-08-14] MEDS ORDERED: Tetrahydrozoline 0.05% OPTH 15 ML BOT EA EYE PRN (13:36)
[2020-08-14] MEDS: Calcitriol 0.25 MCG CAP PO SCH (14:56)
[2020-08-14] MEDS: Tamsulosin HCl 0.4 MG CAP PO SCH (14:56)
[2020-08-14] MEDS: Spironolactone 25 MG TAB PO SCH (14:56)
[2020-08-14] MEDS: Acetaminophen/Codeine 30-300mg Tablet PO PRN ×2 (17:01→23:59)
[2020-08-14] MEDS: CEFAZOLIN 2 GM in Premix Bag 1 BAG IVPB SCH ×2 (17:01→23:53)
[2020-08-14] MEDS: Senokot S 8.6-50 MG TAB PO SCH (21:36)
[2020-08-14] MEDS: guaiFENesin/DM ER PO SCH (21:37)
[2020-08-14 23:38] LABS: Bacteria/HPF None Seen HPF (None Seen); Bilirubin Negative (Negative); Blood, Urine 2+ (Negative); Clarity Clear (Clear); Glucose, Urine (Dipstick) 100 mg/dL (Negative); Ketone, Urine Negative (Negative); Leukocyte 250 Leu/uL (Negative); Nitrite Negative (Negative); Protein, Urine (Dipstick) 50 mg/dL (Neg-Trace); RBC/HPF Greater than 50 HPF (0-3); Specific Gravity, Urine 1.032 (1.002-1.036); Urobilinogen Normal mg/dL (Less than 2); WBC/HPF 21-50 HPF (0-3)
[2020-08-14 23:40] LABS: Urine Culture Reflex No No
[2020-08-15] MEDS: tiZANidine HCl 4 MG TAB PO SCH ×6 (03:10→22:50)
[2020-08-15] MEDS: Sodium Chloride 0.9% 1,000 ML IV SCH ×2 (04:16→21:28)
[2020-08-15 04:48] LABS: #Lymphocytes 1.1 thou/uL (1.20-3.40); #Monocytes 0.5 thou/uL (0.11-0.59); #Neutrophils 10.9 thou/uL (1.40-6.50); %Basophils 0.2 % (0.0-1.0); %Lymphocytes 8.6 % (21.0-51.0); %Monocytes 4.2 % (0.0-10.0); %Neutrophils 87.1 % (42.0-75.0); Hemoglobin 9.8 g/dL (14.0-18.0); Mean Corpuscular HGB CONC 32.5 g/dL (32.0-36.0); Mean Corpuscular Hemoglobin 31.7 pg (27.0-31.0); Mean Corpuscular Volume 97.6 fL (78.0-98.0); Mean Platelet Volume 7.6 fL (7.4-10.4); Platelet Count 228 thou/uL (130-400); RBC Distribution Width 12.7 % (11.5-14.5); Red Blood Cell (RBC) Count 3.08 mill/uL (4.70-6.10); White Blood Cell (WBC) Count 12.5 thou/uL (4.8-10.8)
[2020-08-15 05:12] LABS: ALT (SGPT) 48 U/L (8-55); AST (SGOT) 34 U/L (5-34); Alkaline Phosphatase 173 U/L (40-110); Anion Gap 11 mmol/L (10-20); BUN (Urea Nitrogen) 8 mg/dL (8.4-25.7); Bilirubin, Total 0.3 mg/dL (0.2-1.2); Calc. Creatinine Clearance 152 mL/min (70-130); Calcium 7.7 mg/dL (7.8-10.44); Carbon Dioxide 27 mmol/L (23-31); Chloride 101 mmol/L (98-107); Globulin 2.7 g/dL (2.4-3.5); Glucose 150 mg/dL (80-115); Potassium 4.2 mmol/L (3.5-5.1); Protein, Total 5.7 g/dL (5.8-8.1); Sodium 135 mmol/L (136-145)
[2020-08-15] MEDS: traMADol HCl 50 MG TAB PO PRN ×2 (05:37→21:28)
[2020-08-15] MEDS ORDERED: Levothyroxine Sodium 88 MCG TAB PO SCH (06:00)
[2020-08-15] MEDS: Acetaminophen/Codeine 30-300mg Tablet PO PRN ×2 (08:23→14:30)
[2020-08-15] MEDS: Polyethylene Glycol 3350 17 GM Packet PO SCH (08:27)
[2020-08-15] MEDS: CEFAZOLIN 2 GM in Premix Bag 1 BAG IVPB SCH (08:27)
[2020-08-15] MEDS: Senokot S 8.6-50 MG TAB PO SCH ×2 (08:28→21:25)
[2020-08-15] MEDS: Aspirin 81 mg Enteric Coated Tablet PO SCH ×2 (08:28→21:19)
[2020-08-15] MEDS: Spironolactone 25 MG TAB PO SCH (08:29)
[2020-08-15] MEDS: Metoprolol Tartrate 25 MG TAB PO SCH (08:29)
[2020-08-15] MEDS: guaiFENesin/DM ER PO SCH ×2 (08:30→21:22)
[2020-08-15] MEDS: Tamsulosin HCl 0.4 MG CAP PO SCH (08:30)
[2020-08-15] MEDS: Calcitriol 0.25 MCG CAP PO SCH (08:30)
[2020-08-15] MEDS: cefTRIAXone\\ROCEPHIN 1 GM in Sodium Chloride 0.9% 100 ML IVPB SCH (09:17)
[2020-08-15] MEDS ORDERED: Diltiazem HCl 125 MG, Admixture Fee 1 EACH in Sodium Chloride 0.9% 100 ML IVPB SCH (10:15)
[2020-08-15] MEDS: HYDROcodone/Acetaminophen 10/325 mg Tablet PO PRN ×2 (11:23→18:18)
[2020-08-16] MEDS: tiZANidine HCl 4 MG TAB PO SCH ×6 (02:55→23:10)
[2020-08-16] MEDS: Acetaminophen/Codeine 30-300mg Tablet PO PRN ×2 (03:00→23:11)
[2020-08-16] MEDS: Levothyroxine 175 MCG TAB PO SCH (06:27)
[2020-08-16] MEDS: cefTRIAXone\\ROCEPHIN 1 GM in Sodium Chloride 0.9% 100 ML IVPB SCH (08:21)
[2020-08-16] MEDS: Polyethylene Glycol 3350 17 GM Packet PO SCH (08:23)
[2020-08-16] MEDS: Senokot S 8.6-50 MG TAB PO SCH ×2 (08:23→21:28)
[2020-08-16] MEDS: guaiFENesin/DM ER PO SCH ×2 (08:24→21:28)
[2020-08-16] MEDS: Aspirin 81 mg Enteric Coated Tablet PO SCH (08:24)
[2020-08-16] MEDS: Spironolactone 25 MG TAB PO SCH (08:24)
[2020-08-16] MEDS: Apixaban 5 MG TAB PO SCH ×2 (08:24→21:27)
[2020-08-16] MEDS: Calcitriol 0.25 MCG CAP PO SCH (08:24)
[2020-08-16] MEDS: Tamsulosin HCl 0.4 MG CAP PO SCH (08:24)
[2020-08-16] MEDS: traMADol HCl 50 MG TAB PO PRN ×2 (09:31→17:16)
[2020-08-16] MEDS: HYDROcodone/Acetaminophen 10/325 mg Tablet PO PRN ×2 (13:30→21:27)
[2020-08-16] MEDS: Simethicone 40 MG/0.6 ML Drop 30 ML BOT PO PRN ×2 (17:16→23:12)
[2020-08-16] MEDS: Ondansetron PF 4 MG/2 ML Vial IVP PRN (17:19)
[2020-08-17] MEDS: tiZANidine HCl 4 MG TAB PO SCH ×6 (03:19→21:27)
[2020-08-17 05:18] LABS: #Eosinphils 0.2 thou/uL (0.0-0.7); #Lymphocytes 1.8 thou/uL (1.20-3.40); #Monocytes 0.5 thou/uL (0.11-0.59); #Neutrophils 4.6 thou/uL (1.40-6.50); %Basophils 0.3 % (0.0-1.0); %Eosinophils 2.3 % (0.0-10.0); %Lymphocytes 24.7 % (21.0-51.0); %Monocytes 7.4 % (0.0-10.0); %Neutrophils 65.3 % (42.0-75.0); Hemoglobin 9.1 g/dL (14.0-18.0); Mean Corpuscular HGB CONC 33.4 g/dL (32.0-36.0); Mean Corpuscular Hemoglobin 32.9 pg (27.0-31.0); Mean Corpuscular Volume 98.7 fL (78.0-98.0); Mean Platelet Volume 7.7 fL (7.4-10.4); Platelet Count 233 thou/uL (130-400); RBC Distribution Width 13.1 % (11.5-14.5); Red Blood Cell (RBC) Count 2.76 mill/uL (4.70-6.10); White Blood Cell (WBC) Count 7.1 thou/uL (4.8-10.8)
[2020-08-17] MEDS: HYDROcodone/Acetaminophen 10/325 mg Tablet PO PRN ×2 (05:38→20:06)
[2020-08-17] MEDS: Levothyroxine 175 MCG TAB PO SCH (05:39)
[2020-08-17 05:42] LABS: Anion Gap 12 mmol/L (10-20); BUN (Urea Nitrogen) 6 mg/dL (8.4-25.7); Calc. Creatinine Clearance 162 mL/min (70-130); Calcium 7.9 mg/dL (7.8-10.44); Carbon Dioxide 27 mmol/L (23-31); Chloride 101 mmol/L (98-107); Glucose 83 mg/dL (80-115); Potassium 3.5 mmol/L (3.5-5.1); Sodium 136 mmol/L (136-145)
[2020-08-17] MEDS: Simethicone 40 MG/0.6 ML Drop 30 ML BOT PO PRN ×2 (05:44→15:27)
[2020-08-17] MEDS: Ondansetron PF 4 MG/2 ML Vial IVP PRN ×2 (08:57→17:25)
[2020-08-17] MEDS: cefTRIAXone\\ROCEPHIN 1 GM in Sodium Chloride 0.9% 100 ML IVPB SCH (09:00)
[2020-08-17] MEDS: Apixaban 5 MG TAB PO SCH ×2 (09:01→20:07)
[2020-08-17] MEDS: Tamsulosin HCl 0.4 MG CAP PO SCH (09:01)
[2020-08-17] MEDS: Calcitriol 0.25 MCG CAP PO SCH (09:01)
[2020-08-17] MEDS: Polyethylene Glycol 3350 17 GM Packet PO SCH (09:02)
[2020-08-17] MEDS: traMADol HCl 50 MG TAB PO PRN (09:02)
[2020-08-17] MEDS: guaiFENesin/DM ER PO SCH ×2 (09:02→20:07)
[2020-08-17] MEDS: Senokot S 8.6-50 MG TAB PO SCH ×2 (09:02→20:07)
[2020-08-17] MEDS ORDERED: tiZANidine HCl 4 MG TAB ONE (11:54)
[2020-08-17] MEDS ORDERED: Mag-Al Plus 1200 MG/1200 MG/120 MG/30 ML UDCUP PO PRN (14:49)
[2020-08-17] MEDS ORDERED: Potassium Chloride 20 MEQ TAB PO SCH (17:00)
[2020-08-18] MEDS: tiZANidine HCl 4 MG TAB PO SCH ×6 (03:18→21:53)
[2020-08-18] MEDS: Levothyroxine 175 MCG TAB PO SCH (05:00)
[2020-08-18 05:02] LABS: #Basophils 0.2 thou/uL (0.0-0.2); #Eosinphils 0.2 thou/uL (0.0-0.7); #Lymphocytes 1.5 thou/uL (1.20-3.40); #Monocytes 0.5 thou/uL (0.11-0.59); #Neutrophils 4.4 thou/uL (1.40-6.50); %Basophils 2.6 % (0.0-1.0); %Neutrophils 65.3 % (42.0-75.0); Hemoglobin 8.9 g/dL (14.0-18.0); Mean Corpuscular HGB CONC 33.4 g/dL (32.0-36.0); Mean Corpuscular Hemoglobin 32.5 pg (27.0-31.0); Mean Corpuscular Volume 97.3 fL (78.0-98.0); Mean Platelet Volume 7.6 fL (7.4-10.4); Platelet Count 280 thou/uL (130-400); Red Blood Cell (RBC) Count 2.75 mill/uL (4.70-6.10); White Blood Cell (WBC) Count 6.7 thou/uL (4.8-10.8)
[2020-08-18 05:22] LABS: Anion Gap 12 mmol/L (10-20); BUN (Urea Nitrogen) 5 mg/dL (8.4-25.7); Calc. Creatinine Clearance 174 mL/min (70-130); Calcium 7.9 mg/dL (7.8-10.44); Carbon Dioxide 27 mmol/L (23-31); Chloride 102 mmol/L (98-107); Glucose 93 mg/dL (80-115); Potassium 3.2 mmol/L (3.5-5.1); Sodium 138 mmol/L (136-145)
[2020-08-18] MEDS: HYDROcodone/Acetaminophen 10/325 mg Tablet PO PRN ×3 (09:42→19:49)
[2020-08-18] MEDS: Apixaban 5 MG TAB PO SCH ×2 (09:44→19:49)
[2020-08-18] MEDS ORDERED: Dicyclomine 10 MG CAP PO PRN (09:50)
[2020-08-18] MEDS: Calcitriol 0.25 MCG CAP PO SCH (10:09)
[2020-08-18 12:25] VITALS: BMI 33.3
[2020-08-19] MEDS: HYDROcodone/Acetaminophen 10/325 mg Tablet PO PRN ×4 (00:11→20:09)
[2020-08-19 04:16] LABS: #Eosinphils 0.2 thou/uL (0.0-0.7); #Monocytes 0.4 thou/uL (0.11-0.59); #Neutrophils 2.8 thou/uL (1.40-6.50); %Basophils 0.1 % (0.0-1.0); %Eosinophils 4.5 % (0.0-10.0); %Lymphocytes 36.8 % (21.0-51.0); %Monocytes 7.9 % (0.0-10.0); %Neutrophils 50.7 % (42.0-75.0); Hemoglobin 8.3 g/dL (14.0-18.0); Mean Corpuscular HGB CONC 32.7 g/dL (32.0-36.0); Mean Corpuscular Hemoglobin 31.6 pg (27.0-31.0); Mean Corpuscular Volume 96.7 fL (78.0-98.0); Mean Platelet Volume 7.1 fL (7.4-10.4); Platelet Count 292 thou/uL (130-400); Red Blood Cell (RBC) Count 2.61 mill/uL (4.70-6.10); White Blood Cell (WBC) Count 5.5 thou/uL (4.8-10.8)
[2020-08-19 04:34] LABS: Anion Gap 12 mmol/L (10-20); BUN (Urea Nitrogen) 5 mg/dL (8.4-25.7); Calc. Creatinine Clearance 179 mL/min (70-130); Calcium 7.3 mg/dL (7.8-10.44); Carbon Dioxide 28 mmol/L (23-31); Chloride 103 mmol/L (98-107); Glucose 94 mg/dL (80-115); Sodium 140 mmol/L (136-145)
[2020-08-19 04:46] LABS: Potassium 2.9 mmol/L (3.5-5.1)
[2020-08-19] MEDS: tiZANidine HCl 4 MG TAB PO SCH ×5 (04:47→18:08)
[2020-08-19] MEDS ORDERED: Potassium Chloride 40 MEQ in Sodium Chloride 0.9% 250 ML 250 ML IVPB SCH (05:00)
[2020-08-19] MEDS: Levothyroxine 175 MCG TAB PO SCH (05:21)
[2020-08-19] MEDS: Apixaban 5 MG TAB PO SCH ×2 (08:54→20:08)
[2020-08-19] MEDS: Calcitriol 0.25 MCG CAP PO SCH (08:54)
[2020-08-19] MEDS: Acetaminophen/Codeine 30-300mg Tablet PO PRN (09:01)
[2020-08-19] MEDS ORDERED: Potassium Bicarbonate/Cit Ac 20 MEQ TAB PO SCH (09:30)
[2020-08-19] MEDS: Simethicone 40 MG/0.6 ML Drop 30 ML BOT PO PRN (11:00)
[2020-08-19] MEDS ORDERED: Tamsulosin HCl 0.4 MG CAP PO SCH ×2 (21:00)
[2020-08-20] MEDS: tiZANidine HCl 4 MG TAB PO SCH ×5 (00:21→15:13)
[2020-08-20] MEDS: HYDROcodone/Acetaminophen 10/325 mg Tablet PO PRN ×2 (00:22→05:15)
[2020-08-20 05:09] LABS: #Eosinphils 0.3 thou/uL (0.0-0.7); #Lymphocytes 2.1 thou/uL (1.20-3.40); #Monocytes 0.5 thou/uL (0.11-0.59); #Neutrophils 3.5 thou/uL (1.40-6.50); %Basophils 0.3 % (0.0-1.0); %Eosinophils 4.3 % (0.0-10.0); %Lymphocytes 32.6 % (21.0-51.0); %Monocytes 7.8 % (0.0-10.0); Hemoglobin 8.6 g/dL (14.0-18.0); Mean Corpuscular HGB CONC 32.5 g/dL (32.0-36.0); Mean Corpuscular Hemoglobin 31.7 pg (27.0-31.0); Mean Corpuscular Volume 97.7 fL (78.0-98.0); Mean Platelet Volume 7.1 fL (7.4-10.4); Platelet Count 348 thou/uL (130-400); RBC Distribution Width 13.2 % (11.5-14.5); White Blood Cell (WBC) Count 6.3 thou/uL (4.8-10.8)
[2020-08-20 05:12] LABS: Anion Gap 11 mmol/L (10-20); BUN (Urea Nitrogen) 5 mg/dL (8.4-25.7); Calc. Creatinine Clearance 170 mL/min (70-130); Calcium 7.8 mg/dL (7.8-10.44); Carbon Dioxide 30 mmol/L (23-31); Chloride 103 mmol/L (98-107); Glucose 90 mg/dL (80-115); Magnesium 1.2 mg/dL (1.6-2.6); Potassium 3.3 mmol/L (3.5-5.1); Sodium 141 mmol/L (136-145)
[2020-08-20] MEDS: Levothyroxine 175 MCG TAB PO SCH (05:15)
[2020-08-20 05:31] LABS: Free T4 (Free Thyroxine) 1.2 ng/dL (0.70-1.48); Thyroid Stimulating Hormone 2.9643 uIU/mL (0.35-4.94)
[2020-08-20] MEDS: Apixaban 5 MG TAB PO SCH (08:51)
[2020-08-20] MEDS: Calcitriol 0.25 MCG CAP PO SCH (08:52)
[2020-08-20] MEDS ORDERED: Potassium Chloride 20 MEQ TAB PO SCH ×2 (09:15→09:21)
[2020-08-20] MEDS ORDERED: Potassium Bicarbonate/Cit Ac 20 MEQ TAB PO SCH (09:45)
[2020-08-20] MEDS ORDERED: Magnesium Sulfate 4 GM in Sodium Chloride 0.9% 250 ML 250 ML IVPB SCH (11:00)
[2020-08-20] MEDS: Acetaminophen/Codeine 30-300mg Tablet PO PRN ×2 (12:02→17:15)
[2020-08-20 15:12] VITALS: TEMP 98
[2020-08-20 16:58] VITALS: BP 105/61
[2020-08-20] MEDS ORDERED: Apixaban 5 MG TAB PO SCH (21:00)
== END 2020-08-20 18:47 | DRG 470 ==
LOC: ERS 12:41 → ERHOLD 14:12 → 2NO 20:12
PROVIDERS: ADMIT Student in an Organized Health Care Education/Training Program; ATTEND Hospitalist
PROC: 0SR90JZ Replacement of Right Hip Joint with Synthetic Substitute, Open Approach (ICD-10-PCS; principal; 2020-08-14)
DX: M87.251 Osteonecrosis due to previous trauma, right femur (principal); I48.11 Longstanding persistent atrial fibrillation; D62 Acute posthemorrhagic anemia; Z20.822 Contact with and (suspected) exposure to COVID-19; E78.00 Pure hypercholesterolemia, unspecified; E03.9 Hypothyroidism, unspecified; N40.0 Benign prostatic hyperplasia without lower urinary tract symptoms; E78.5 Hyperlipidemia, unspecified; E66.9 Obesity, unspecified; I10 Essential (primary) hypertension; S32.401G Unspecified fracture of right acetabulum, subsequent encounter for fracture with delayed healing; Z90.49 Acquired absence of other specified parts of digestive tract; Z87.891 Personal history of nicotine dependence; Z79.01 Long term (current) use of anticoagulants; Z79.51 Long term (current) use of inhaled steroids; Z79.899 Other long term (current) drug therapy; Z79.890 Hormone replacement therapy; Z68.33 Body mass index [BMI] 33.0-33.9, adult; I95.9 Hypotension, unspecified; E87.6 Hypokalemia; E83.42 Hypomagnesemia; M24.451 Recurrent dislocation, right hip
CPT/HCPCS: 0240U; 36415; 71045; 72170; 80048; 80053; 81001; 83735; 83880; 84439; 84443; 84484; 85025; 85060; 87040; 87070; 87086; 87205; 87635; 89051; 93005; 94640; 96374; 96375; 96376; C1713; C1776; J0690; J0696; J1100; J1170; J2270; J2405; J2704; J3010; J3475; J3480; J3490; J7050; J7620; U0003; U0005

== ENCOUNTER 2023-02-01 13:15 | Outpatient (CLI) | payer MEDICARE | END 2023-02-01 13:16 | disposition home or self-care (01) | LOC: RAD 13:15 | PROVIDERS: ATTEND Internal Medicine | DX: R06.00 Dyspnea, unspecified (principal); I51.7 Cardiomegaly | CPT/HCPCS: 71046 ==

== ENCOUNTER 2023-04-11 17:00 | Outpatient (CLI) | payer MEDICARE | END 2023-04-11 17:01 | disposition home or self-care (01) | LOC: SLEEPLAB 17:00 | PROVIDERS: ATTEND Internal Medicine | DX: G47.33 Obstructive sleep apnea (adult) (pediatric) (principal); R06.83 Snoring; I48.91 Unspecified atrial fibrillation; I10 Essential (primary) hypertension; K31.1 Adult hypertrophic pyloric stenosis; R05.9 Cough, unspecified; Z77.090 Contact with and (suspected) exposure to asbestos | CPT/HCPCS: 95800 ==

== ENCOUNTER 2023-05-15 16:00 | Outpatient (CLI) | payer MEDICARE | END 2023-05-15 16:01 | disposition home or self-care (01) | LOC: SLEEPLAB 16:00 | PROVIDERS: ATTEND Internal Medicine | DX: G47.33 Obstructive sleep apnea (adult) (pediatric) (principal); R06.83 Snoring; I48.91 Unspecified atrial fibrillation; R05.3 Chronic cough; K31.1 Adult hypertrophic pyloric stenosis; R09.02 Hypoxemia; G47.61 Periodic limb movement disorder; Z77.090 Contact with and (suspected) exposure to asbestos | CPT/HCPCS: 95811 ==